=== PATIENT | female | born 1990 | race Caucasian/White ===

== ENCOUNTER → 2017-06-18 | Day surgery (SDC) | payer OTHER ==
[~2017-06-18] VITALS: Ht 162.6 cm; Wt 89.0 kg
[~2017-06-18] MED LIST: MULT-506 PO
[2017-06-18 07:35] VITALS: BP 131/79; PULSE 81; TEMP 36.9; O2SAT 100; Ht 162.6 cm; Wt 89.0 kg
== END | disposition home or self-care (01) ==
LOC: C.MTU 07:28
PROVIDERS: ATTEND Obstetrics & Gynecology
DX: O36.0990 Maternal care for other rhesus isoimmunization, unspecified trimester, not applicable or unspecified (principal); Z3A.00 Weeks of gestation of pregnancy not specified

== ENCOUNTER 2017-09-02 11:40 | Inpatient (IN) | payer OTHER ==
--- NOTE | 2017-08-29 14:33 | HISTORY & PHYSICAL EXAMINATION ---
DATE OF ADMISSION: 09/03/2017 CHIEF COMPLAINT: Term , macrosomia. Previous . HISTORY OF PRESENT ILLNESS: The patient is a 27-year-old 2, para 1, general health is good. Her was well dated with a first trimester ultrasound. She is due 09/04/2017. Her first resulted in a . She was in 32 hours of labor. She arrested at about 6 cm and she ended up with a 9 pound 5 ounce infant. Present head is floating. Cervix 1 cm posterior presently being scheduled for repeat section. PAST MEDICAL HISTORY: She has a 2-year-old son in good health. PAST SURGICAL HISTORY: She had in 2014. MEDICAL HISTORY: No history of rheumatic fever, heart disease, heart murmur, diabetes, tuberculosis. SOCIAL HISTORY: No smoking. No alcohol intake. She is a homemaker. FAMILY HISTORY: Mom is 50 in good health. Father 59, in good health, 6 sisters, 3 brothers, 1 sister is diabetic. REVIEW OF SYSTEMS: HEAD: No symptoms of frequent or severe headaches. EYES: No symptoms of blurred vision, double vision. EARS: No symptoms of frequent ear infection, difficulty hearing. NOSE: No symptoms of frequent nosebleeds, difficulty breathing through her nose. THROAT: No symptoms of frequent or severe sore throats, difficulty swallowing. RESPIRATORY SYSTEM: No history of asthma, chest pain, shortness of breath. PHYSICAL EXAMINATION: GENERAL: Well-developed, well-nourished 27-year-old white female, alert, oriented x3 and cooperative in no acute distress, appears stated age. EYES: Conjunctivae are pink, sclerae white, no evidence of jaundice. EARS: Had normal light reflex bilaterally. NOSE: Had normal mucosa. Septum is midline. There were no polyps. THROAT: No erythema or evidence of infection. Teeth are in good state of repair. HEAD: Was normocephalic, normal distribution of hair. NECK: Supple. Trachea midline. Thyroid is not enlarged. There is no adenopathy appreciated. Both carotids are of good intensity. CHEST: Clear to auscultation and percussion. No wheezes, rales or rhonchi appreciated. HEART: Regular rhythm. S1 and S2 are normal. BREAST EXAMINATION: Normal. ABDOMEN: Soft and nontender. Estimated weight of over 9 pounds. Well-healed Pfannenstiel scar. PELVIC EXAMINATION: Vertex presentation, floating. Cervix posterior, 1 to 2 cm dilated, soft. MUSCULOSKELETAL: Revealed no calf tenderness. IMPRESSIONS OF THIS CASE: Previous , previous history of macrosomia and repeat section.
--- NOTE | 2017-08-29 15:19 | PAT Medication Instructions ---
Service Date Aug 29, 2017. Current Home Medication List Multivit/Min/Iron/Fol Ac/Pren ( Vitamin), 1 TAB PO QAM Dawhu-7-Ikpn Ethyl Esters ([place]-3), 3 CAP PO QAM Vitamin B Complex (Vitamin B Complex), 1 TAB PO QAM Vitamin E (E 1000), 2 TAB PO QAM Medication Instructions For Your Scheduled Surgery - Hold the following medications starting tomorrow (08/30): Lkiks-2-Hych Ethyl Esters ([place]-3), 3 CAP PO QAM Vitamin E (E 1000), 2 TAB PO QAM - Hold the following medications the morning of surgery: Vitamin B Complex (Vitamin B Complex), 1 TAB PO QAM Multivit/Min/Iron/Fol Ac/Pren ( Vitamin), 1 TAB PO QAM : If you have any questions please call us at [phone] or [phone] or [phone]
[2017-08-29 16:13] LABS: BLOOD UREA NITROGEN 5 mg/dl (7-18); BUN/CREATININE RATIO 11.9 (10-20); CALCIUM 8.7 mg/dl (8.5-10.1); CARBON DIOXIDE 21 mmol/L (21-32); CHLORIDE 106 mmol/L (98-107); CREATININE 0.42 mg/dl (0.60-1.20); GLUCOSE 79 mg/dl (70-99); POTASSIUM 3.6 mmol/L (3.5-5.1); SODIUM 136 mmol/L (136-145)
[2017-08-29 16:17] LABS: COMPLETE YES; EOS % 1.1 %; HEMATOCRIT 33.2 % (37-47); IG% 0.7 %; LYMPH % 17.8 %; LYMPH ABS # 1.49 K/uL (1.2-3.4); MEAN CELL VOLUME 84.9 fL (80-100); MEAN CORPUSCULAR HEMOGLOBIN 28.4 pg (25-34); MEAN CORPUSCULAR HGB CONC 33.4 g/dl (32-36); MEAN PLATELET VOLUME 11.8 fL (7.4-10.4); MONO % 6.4 %; PLATELET COUNT 136 K/uL (130-400); RED BLOOD COUNT 3.91 M/uL (4.2-5.4); WHITE BLOOD COUNT 8.38 K/uL (4.8-10.8)
[2017-08-29 16:26] LABS: PARTIAL THROMBOPLASTIN RATIO 1.1; PROTHROMBIN TIME (PATIENT) 10.2 SECONDS (9.0-12.0)
[~2017-09-02] VITALS: Ht 162.6 cm; Wt 86.2 kg
[2017-09-02] VITALS (10 sets, daily range): BP systolic 108–129; BP diastolic 63–74; PULSE 83–94; TEMP 36.8–36.9; O2SAT 98–100; Ht 162.6 cm; Wt 86.2 kg
[~2017-09-02 11:40] MED LIST changes: -MULT-506 PO; +OMEG-112 PO; +PRENTAB26 PO; +VITA1CAP4 PO; +VITBC PO
[2017-09-02] MEDS ORDERED: LACTATED RINGER'S 1000ML 1,000 ML IV SCH ×2 (12:08→13:08)
[2017-09-02] MEDS ORDERED: CITRIC ACID/SODIUM CITRATE 15 ML UDC PO ONE (12:15)
[2017-09-02] MEDS ORDERED: CEFOXITIN IV 2,000 MG in DEXTROSE 5% 50ML 50 ML IV SCH (12:30)
[2017-09-02 12:42] LABS: BASO % 0.1 %; BASO ABS # 0.01 K/uL (0-0.2); COMPLETE YES; EOS % 0.6 %; HEMATOCRIT 30.2 % (37-47); IG% 0.8 %; LYMPH % 17.9 %; LYMPH ABS # 1.38 K/uL (1.2-3.4); MEAN CELL VOLUME 84.6 fL (80-100); MEAN CORPUSCULAR HEMOGLOBIN 28.9 pg (25-34); MEAN CORPUSCULAR HGB CONC 34.1 g/dl (32-36); MEAN PLATELET VOLUME 10.8 fL (7.4-10.4); MONO % 9.7 %; NEUT % 70.9 %; PLATELET COUNT 114 K/uL (130-400); RED BLOOD COUNT 3.57 M/uL (4.2-5.4); WHITE BLOOD COUNT 7.71 K/uL (4.8-10.8)
[2017-09-02] MEDS ORDERED: MoRPHine SULFATE PF 1 MG/ML 10 ML AMP/VIAL ONE (13:38)
[2017-09-02] MEDS ORDERED: EpHEDrine SULFATE 50MG/5ML SYR ONE (14:07)
[2017-09-02] MEDS ORDERED: OXYTOCIN INJ 10 UNITS/ML VIAL IM ONE (14:15)
[2017-09-02] MEDS ORDERED: SODIUM CHLORIDE 0.9% 1000ML 1,000 ML IV PRN (14:26)
[2017-09-02] MEDS ORDERED: LACTATED RINGER'S 1000ML 500 ML IV PRN (14:26)
[2017-09-02] MEDS ORDERED: NALOXONE HCL INJ 1 MG in SODIUM CHLORIDE 0.9% 1000ML 1,000 ML IV PRN (14:26)
[2017-09-02] MEDS ORDERED: NALOXONE HCL INJ 0.08 MG in SYRINGE 1.8 ML IV PRN (14:26)
[2017-09-02] MEDS ORDERED: KETOROLAC TROMETHAMINE 30 MG/ML VIAL IV. PRN (14:30)
[2017-09-02] MEDS ORDERED: NALOXONE HCL 0.4 MG/1 ML VIAL/CARP IV PRN (14:30)
[2017-09-02] MEDS ORDERED: ONDANSETRON INJ 2 MG/ML 2 ML VIAL IV PRN ×2 (14:30)
[2017-09-02] MEDS ORDERED: HYDROmorphone INJ 1 MG/ML SYR IV PRN (14:30)
[2017-09-02] MEDS ORDERED: MoRPHine SULFATE 2 MG/ML CARP IV PRN (14:30)
[2017-09-02] MEDS ORDERED: FENTANYL CITRATE INJ 50 MCG/1 ML 2 ML VIAL IV PRN (14:30)
[2017-09-02] MEDS ORDERED: MEPERIDINE HCL 25 MG/ML CARP IV PRN ×2 (14:30)
[2017-09-02] MEDS ORDERED: ATROPINE SULFATE 0.1 MG/ML 5ML SYR IV PRN (14:30)
[2017-09-02] MEDS ORDERED: NALBUPHINE HCL INJ 10 MG/ML AMP IV PRN (14:30)
[2017-09-02] MEDS ORDERED: MoRPHine SULFATE PF 1 MG/ML 10 ML AMP/VIAL EPI PRN (14:30)
[2017-09-02] MEDS ORDERED: EpHEDrine SULFATE INJ 50 MG/ML AMP IV PRN ×2 (14:30)
[2017-09-02] MEDS ORDERED: LABETALOL HCL IV 5 MG/ML 20ML IV PRN (14:30)
[2017-09-02] MEDS ORDERED: METOCLOPRAMIDE HCL INJ 20 MG in SODIUM CHLORIDE 0.9% 50ML 50 ML IV PRN (14:30)
[2017-09-02] MEDS ORDERED: NO NARCOTICS OR SEDATIVES SCH (14:30)
[2017-09-02] MEDS ORDERED: DiphenhydrAMINE HCL 50 MG/ML VIAL IV PRN ×2 (14:30)
[2017-09-02] MEDS ORDERED: OXYTOCIN INJ 10 UNITS/ML VIAL ONE (15:05)
[2017-09-02] MEDS ORDERED: MAGNESIUM HYDROXIDE SUSP 30 ML UDC PO PRN (15:15)
[2017-09-02] MEDS ORDERED: IBUPROFEN 600 MG TAB PO PRN (15:15)
[2017-09-02] MEDS ORDERED: BENZOCAINE 20% AER SPR 82.5 GM CAN EXT PRN (15:15)
[2017-09-02] MEDS ORDERED: LANOLIN OINT EXT PRN ×2 (15:15)
[2017-09-02] MEDS ORDERED: DIPHTHERIA/TETANUS/PERTUSSIS 0.5 ML SYR/VIAL IM. ONE (15:15)
[2017-09-02] MEDS ORDERED: HYDROCORTISONE ACETATE 25 MG SUPP PR PRN (15:15)
[2017-09-02] MEDS ORDERED: SENNA 8.6 MG TAB PO PRN (15:15)
[2017-09-02] MEDS ORDERED: SUPERCREAM 0.870 % 15GM JAR EXT PRN (15:15)
--- NOTE | 2017-09-02 15:20 | OPERATIVE REPORT ---
DATE OF OPERATION: 09/02/2017 PROCEDURE: Repeat section. INDICATIONS FOR SURGERY: Previous section and a history macrosomia. PREOPERATIVE DIAGNOSES: Intrauterine , 39+ weeks gestation, and ruptured membranes for over 24 hours. SURGEON: Dr. Hernandez. CENTRAL SUPPLY TECHNICIAN SUPERVISOR: assistant manager retail. ESTIMATED BLOOD LOSS: 600 mL. ANESTHESIA: Spinal. OPERATIVE FINDINGS AND PROCEDURE: The patient was brought to the OR table, correctly identified by armband and conversation. Spinal anesthesia was administered. After the patient had been identified by armband and conversation, Dominguez catheter was inserted aseptically in the bladder and connected to gravity drainage. Then, the compression stockings were applied. Lower uterus was prepped with alcohol based sterilizing solution. Following this, adequacy of the spinal was tested and found to be good. A Pfannenstiel incision was made by excising a previous Pfannenstiel incisional scar. Hemostasis was secured by electrocauterization. Fascia was incised transversely, from underlying muscle by blunt and sharp dissection. Recti muscles were in the midline, exposing the peritoneum, which was carefully raised and entered. Incision was made above the vesicouterine fold. Bladder was undermined bluntly and pushed out of the operative field. Lower uterine segment was scored and then entered bluntly with the scissors. Incision was then extended laterally with the 2 fingers. Amniotic fluid was seen coming through the incision. The wire straightening machine operator's hand was inserted in the uterine cavity. A Vectis retractor was applied to the head and with fundal pressure, the infant's head was delivered. It was suctioned by the robotic welder, Dr. Boykin, who was scrubbed and present at time of delivery. Then, the body was delivered with a moderate amount of difficulty due to the size. Cord was clamped and cut and the was attended to by the robotic welder, Dr. Boykin. Following this, cord blood was taken. The placenta was removed manually. Uterus, tubes, and ovaries were brought out through the incision. Uterine cavity was cleansed with a clean sponge. Ten units Pitocin was injected into the myometrium. The myometrium was approximated in 2 layers. The muscular layer was approximated with continuous chromic gut suture. The fascial layer was approximated over this with heavy Vicryl suture and about 3 [id number] sutures were used to bolster the approximation and this was done with heavy Vicryl. Following this, hemostasis was excellent. Peritoneal edges were restored with a 3-0 chromic. The pelvis was cleansed of all blood clots and debris. Uterus, tubes, and ovaries were inspected and found to be normal. They were reinserted into the abdominal cavity and careful anatomical approximation of the anterior abdominal wall was performed. Peritoneum was closed with a mattress suture of chromic catgut. Recti muscles were approximated with interrupted [id number] suture of chromic catgut. The fascia was closed with continuous interlocking suture of Vicryl on each side and tied in the midline. SubQ was approximated with continuous plain and the skin edges were approximated with staple clips. I attest to the content of the Intraoperative Record and any orders documented therein. Any exception s are noted below.
[2017-09-02] MEDS: OXYTOCIN INJ 20 UNITS in LACTATED RINGER'S 1000ML 1,000 ML IV SCH (16:43)
[2017-09-02] MEDS: SIMETHICONE 80 MG CHEW PO SCH ×2 (16:54→19:45)
--- NOTE | 2017-09-02 17:50 | Anesthesiology Progress Note ---
Anesthesia Post Op Note Date & Time Sep 02, 2017 at 17:49 Notes Neuraxial Anesthesia: was administered, sensory block is resolving
[2017-09-02] MEDS: DOCUSATE SODIUM 100 MG CAP PO SCH (19:45)
[2017-09-03] VITALS (12 sets, daily range): BP systolic 100–110; BP diastolic 57–69; PULSE 73–80; TEMP 36.5–37; O2SAT 97–99
[2017-09-03] MEDS: OXYTOCIN INJ 20 UNITS in LACTATED RINGER'S 1000ML 1,000 ML IV SCH (01:56)
[2017-09-03] MEDS ORDERED: LACTATED RINGER'S 1000ML 1,000 ML IV SCH (06:00)
[2017-09-03] MEDS ORDERED: CITRIC ACID/SODIUM CITRATE 15 ML UDC PO SCH (06:00)
[2017-09-03 06:36] LABS: COMPLETE YES; EOS % 0.3 %; HEMATOCRIT 27.7 % (37-47); IG% 0.6 %; LYMPH % 10.8 %; LYMPH ABS # 1.01 K/uL (1.2-3.4); MEAN CELL VOLUME 85.2 fL (80-100); MEAN CORPUSCULAR HEMOGLOBIN 28.6 pg (25-34); MEAN CORPUSCULAR HGB CONC 33.6 g/dl (32-36); MEAN PLATELET VOLUME 11.5 fL (7.4-10.4); MONO % 8.7 %; NEUT % 79.6 %; PLATELET COUNT 119 K/uL (130-400); RED BLOOD COUNT 3.25 M/uL (4.2-5.4); WHITE BLOOD COUNT 9.33 K/uL (4.8-10.8)
[2017-09-03] MEDS ORDERED: DC INTRASPINAL MORPHINE SCH (07:55)
[2017-09-03] MEDS ORDERED: OXYCODONE/ACETAMINOPHEN 5-325 TAB PO PRN ×2 (07:56)
[2017-09-03] MEDS ORDERED: DiphenhydrAMINE HCL 50 MG/ML VIAL IV PRN (07:56)
[2017-09-03] MEDS ORDERED: ONDANSETRON INJ 2 MG/ML 2 ML VIAL IV PRN (07:56)
[2017-09-03] MEDS ORDERED: KETOROLAC TROMETHAMINE 30 MG/ML VIAL IV. PRN (07:56)
[2017-09-03] MEDS ORDERED: ZOLPIDEM TARTRATE 5 MG TAB PO PRN (07:56)
[2017-09-03] MEDS ORDERED: MEPERIDINE HCL 50 MG/ML CARP IV PRN ×2 (07:56)
[2017-09-03] MEDS ORDERED: FERROUS SULFATE 325 MG TAB PO SCH (08:00)
[2017-09-03] MEDS ORDERED: PRENATAL VITAMIN TAB PO SCH (08:00)
[2017-09-03] MEDS: DOCUSATE SODIUM 100 MG CAP PO SCH (08:59)
[2017-09-03] MEDS: SIMETHICONE 80 MG CHEW PO SCH ×2 (08:59→17:20)
--- NOTE | 2017-09-03 09:19 | Progress Note ---
Subjective Sep 03, 2017. Subjective conversation w/ patient Ambulation: ambulating normally Voiding: no voiding problems Passing Gas: Yes Diet Tolerance: Regular Diet Lochia: Small Feeding Type: Breast Feeding Review of Systems Constitutional: + fever Objective Vital Signs Date Time Temp Pulse Resp B/P (MAP) Pulse Ox O2 Delivery O2 Flow Rate FiO2 09/03/17 05:30 18 99 09/03/17 03:30 36.9 80 18 110/69 (83) 99 Room Air 09/03/17 03:30 18 99 09/03/17 02:30 18 99 09/03/17 01:30 18 99 09/03/17 00:30 20 99 09/02/17 23:30 98 Room Air 09/02/17 23:30 36.9 86 18 108/63 (78) 98 Room Air 09/02/17 23:30 18 98 09/02/17 22:30 18 98 09/02/17 21:30 18 99 09/02/17 20:30 20 98 09/02/17 20:00 36.8 83 16 110/66 (81) 100 Room Air 09/02/17 19:30 16 100 09/02/17 18:30 18 100 09/02/17 18:05 36.8 94 18 123/69 (87) 100 09/02/17 17:30 18 98 09/02/17 17:25 98 Room Air 09/02/17 17:25 36.8 88 18 129/74 (92) 98 Room Air Physical Exam General Appearance: WELL-APPEARING Respiratory/Chest: lungs clear Abdomen: normal bowel sounds, non tender Fundus: Firm, Non-Tender Incision Description: Clean, Dry & Intact Extremities: no pedal edema, no calf tenderness Laboratory Results Last 24 Hours Test 09/02/17 12:33 09/03/17 05:58 White Blood Count 7.71 K/uL 9.33 K/uL Red Blood Count 3.57 M/uL 3.25 M/uL Hemoglobin 10.3 g/dL 9.3 g/dL Hematocrit 30.2 % 27.7 % Mean Corpuscular Volume 84.6 fL 85.2 fL Mean Corpuscular Hemoglobin 28.9 pg 28.6 pg Mean Corpuscular Hemoglobin Concent 34.1 g/dl 33.6 g/dl Platelet Count 114 K/uL 119 K/uL Mean Platelet Volume 10.8 fL 11.5 fL Neutrophils (%) (Auto) 70.9 % 79.6 % Lymphocytes (%) (Auto) 17.9 % 10.8 % Monocytes (%) (Auto) 9.7 % 8.7 % Eosinophils (%) (Auto) 0.6 % 0.3 % Basophils (%) (Auto) 0.1 % 0.0 % Neutrophils # (Auto) 5.46 K/uL 7.42 K/uL Lymphocytes # (Auto) 1.38 K/uL 1.01 K/uL Monocytes # (Auto) 0.75 K/uL 0.81 K/uL Eosinophils # (Auto) 0.05 K/uL 0.03 K/uL Basophils # (Auto) 0.01 K/uL 0.00 K/uL RDW Standard Deviation 41.9 fL 43.6 fL RDW Coefficient of Variation 13.7 % 14.0 % Immature Granulocyte % (Auto) 0.8 % 0.6 % Immature Granulocyte # (Auto) 0.06 K/uL 0.06 K/uL Assessment and Plan Post-Op Day#: 1 Continue Routine Care: patient requested discharge
--- NOTE | 2017-09-03 09:21 | Discharge Instructions ---
Discharge Instructions Date of Service Sep 03, 2017. Admission Reason for Admission: R/O Rupture Of Membranes Discharge Discharge Diagnosis / Problem: ruptured membranes over 24 hours Discharge Goals Goal(s): Routine recovery after Activity Recommendations Activity Limitations: as noted below ACTIVITY RECOMMENDATIONS: * Gradual return to full activity over the next 2-3 weeks. * No lifting - nothing heavier than baby over the next 2-3 weeks. * Do not engage in vigorous exercise, sexual activity or sports for 6 weeks. * Do not drive or operate any motorized equipment for 14 days. * You may shower/bathe daily. DIET: Resume Previous Diet If Breast-feeding: * Increase caloric intake by 500 calories, eat 3 well balanced meals, 2 high protein snacks a day and drink 6-8 8oz. glasses of fluid per day. BREAST CARE: If you are not breast feeding: * Wear a supportive bra 24 hours a day for one to two weeks. * Avoid stimulating your breasts and nipples as much as possible during the first few weeks after delivery. * When taking a shower, have the warm water hit your back, not breasts. * When your breasts feel full, apply ice packs. Usually three to four times a day helps ease the discomfort. * Take a mild pain medication (Tylenol / Motrin) when you are uncomfortable. If breast feeding: * Use breast milk to lubricate nipples. Lansinoh cream may be used for sore nipples. You do not need to remove cream prior to breast feeding. If using a different brand of cream, check the label for directions regarding removal of cream prior to nursing. * Wear a supportive bra. * If having problems with breasts or breast feeding, call a road consultant or your health care provider. VITAMINS: * One tablet daily. Continue taking while or until you have your check up in 6 weeks. SPECIAL CARE INSTRUCTIONS: * Vaginal rest (no tampons, douching, intercourse) until after doctor's visit. * control as discussed with doctor. * Verbalizes understanding of car seat law as reviewed with patient by nursing. * Car Seat hand-out given and reviewed with patient by nursing. * Shaken baby information reviewed with patient by nursing. Call you doctor if: * Heavy bleeding (saturating a pad an hour) or passing clots the size of your fist. Bleeding has a foul smelling odor. * A fever greater than 100.4 degrees F (38 degrees C) on two occasions four hours apart and/or chills. * Unusual pain in the pelvic or vaginal areas. Pain should improve each day . * Call the doctor for any increased redness, drainage or swelling around the incision and any pain unrelieved by prescribed pain medication. * Signs and symptoms of phlebitis(possible blood clots forming in the veins): leg pain, warm, red or swollen area on leg. * "Baby Blues" lasting longer than two weeks. If you have any questions or concerns, call your health care practitioner at [phone]. FOLLOW-UP VISIT: Follow-up visit for examination in 6 weeks. Incision check (staple removal) in 1 week. Please call office at [phone] if not already scheduled. . Instructions / Follow-Up Instructions / Follow-Up ACTIVITY RECOMMENDATIONS: * Gradual return to full activity over the next 2-3 weeks. * No lifting - nothing heavier than baby over the next 2-3 weeks. * Do not engage in vigorous exercise, sexual activity or sports for 6 weeks. * Do not drive or operate any motorized equipment for 14 days. * You may shower/bathe daily. DIET: Resume Previous Diet If Breast-feeding: * Increase caloric intake by 500 calories, eat 3 well balanced meals, 2 high protein snacks a day and drink 6-8 8oz. glasses of fluid per day. BREAST CARE: If you are not breast feeding: * Wear a supportive bra 24 hours a day for one to two weeks. * Avoid stimulating your breasts and nipples as much as possible during the first few weeks after delivery. * When taking a shower, have the warm water hit your back, not breasts. * When your breasts feel full, apply ice packs. Usually three to four times a day helps ease the discomfort. * Take a mild pain medication (Tylenol / Motrin) when you are uncomfortable. If breast feeding: * Use breast milk to lubricate nipples. Lansinoh cream may be used for sore nipples. You do not need to remove cream prior to breast feeding. If using a different brand of cream, check the label for directions regarding removal of cream prior to nursing. * Wear a supportive bra. * If having problems with breasts or breast feeding, call a road consultant or your health care provider. VITAMINS: * One tablet daily. Continue taking while or until you have your check up in 6 weeks. SPECIAL CARE INSTRUCTIONS: * Vaginal rest (no tampons, douching, intercourse) until after doctor's visit. * control as discussed with doctor. * Verbalizes understanding of car seat law as reviewed with patient by nursing. * Car Seat hand-out given and reviewed with patient by nursing. * Shaken baby information reviewed with patient by nursing. Call you doctor if: * Heavy bleeding (saturating a pad an hour) or passing clots the size of your fist. Bleeding has a foul smelling odor. * A fever greater than 100.4 degrees F (38 degrees C) on two occasions four hours apart and/or chills. * Unusual pain in the pelvic or vaginal areas. Pain should improve each day . * Call the doctor for any increased redness, drainage or swelling around the incision and any pain unrelieved by prescribed pain medication. * Signs and symptoms of phlebitis(possible blood clots forming in the veins): leg pain, warm, red or swollen area on leg. * "Baby Blues" lasting longer than two weeks. If you have any questions or concerns, call your health care practitioner at [phone]. FOLLOW-UP VISIT: Follow-up visit for examination in 6 weeks. Incision check (staple removal) in 1 week. Please call office at [phone] if not already scheduled. Current Hospital Diet Patient's current hospital diet: Regular OB Diet Discharge Diet Recommended Diet: Regular Diet Procedures Procedures Performed: [facility] delivery for live female at 1412 Pending Studies Studies pending at discharge: no Medical Emergencies . Who to Call and When: Medical Emergencies: If at any time you feel your situation is an emergency, please call 911 immediately. . Non-Emergent Contact Non-Emergency issues call your: Inner Diameter Grinder Tool Call Non-Emergent contact if: temperature is above 100.5 . . "Provider Documentation" section prepared by Alcides Hernandez. . VTE Core Measure Inpt VTE Proph given/why not?: Treatment not indicated
--- NOTE | 2017-09-03 09:36 | DISCHARGE SUMMARY ---
This is a 27-year-old female 2, para 2 who has been followed in our office for care and delivery, had a prior for macrosomia and cephalopelvic disproportion. The patient called on the day of admission and stated that her membranes had been ruptured since 3:00 a.m. on the previous day. She was told to come into the office for evaluation at which time she had cheng rupture of membranes confirmed by Nitrazine paper and at that time the head was floating, was posterior, and was about 1-2 cm. She was sent up to maternity for repeat section. She received 2 grams of Mefoxin prophylactic antibiotics, underwent repeat low segment section. Blood loss was moderate at about 500-600 mL. Postoperatively, she did well. Her preoperative hemoglobin was about 10.6, postoperatively was about 9.3. On the first postoperative day, she was ambulating well, eating well. She had good bowel sounds. Pain was well controlled with Percocet and Motrin and they requested discharge later in the day. She was given the usual discharge instructions and told to call the office if she had a temperature over 100 or any heavy bleeding and was given the usual prescriptions of Percocet and Motrin and told to continue her vitamins.
[2017-09-03] MEDS ORDERED: BISACODYL 5 MG TABEC PO ONE (22:00)
[2017-09-04] MEDS ORDERED: BISACODYL 10 MG SUPP PR PRN (15:15)
== END 2017-09-03 18:25 | disposition home or self-care (01) | DRG 766 ==
LOC: C.LD 11:40 → C.OPB 11:40 → C.LD 12:10 → C.OPB 12:44 → C.OBG 19:10 → EDSTATUS 09-03 07:30
PROVIDERS: ADMIT Obstetrics & Gynecology; ATTEND Obstetrics & Gynecology
PROC: 10D00Z1 Extraction of Products of Conception, Low, Open Approach (ICD-10-PCS; principal; 2017-09-02 12:46)
DX: O34.211 Maternal care for low transverse scar from previous cesarean delivery (principal); O42.12 Full-term premature rupture of membranes, onset of labor more than 24 hours following rupture; O09.893 Supervision of other high risk pregnancies, third trimester; Z3A.39 39 weeks gestation of pregnancy; Z37.0 Single live birth

== ENCOUNTER 2020-01-15 06:09 | Inpatient (IN) ==
[2020-01-15] MEDS ORDERED: PIPERACILL/TAZOBAC CONSULT ACTIVE PRN (06:50)
[2020-01-15] MEDS ORDERED: DEXAMETHASONE SOD INJ 4 MG/ML VIAL IV STA (06:50)
[2020-01-15] MEDS ORDERED: SODIUM CHLORIDE 0.9% 1000ML 1,000 ML IV ONE (06:50)
[2020-01-15] MEDS ORDERED: PIPERACILLIN/TAZOBACTAM 4.5 GM/120 ML BAG IV ONE (06:50)
[2020-01-15] MEDS ORDERED: ACETAMINOPHEN 1,000 MG/100 ML VIAL IV STA (06:50)
[2020-01-15 07:16] LABS: Basophils # (auto) 0.01 K/uL (0-0.2); Basophils % (auto) 0.1 %; Eosinophils # (auto) 0.07 K/uL (0-0.5); Eosinophils % (auto) 0.9 %; Hematocrit (blood only) 36.5 % (37-47); Hemoglobin 12.4 g/dL (12.0-16.0); Immature Granulocytes # (auto) 0.01 K/uL (0.00-0.02); Immature Granulocytes % (auto) 0.1 %; Lymphocytes % (auto) 11.8 %; Mean Corpuscular Hemoglobin 28.1 pg (25-34); Mean Corpuscular Volume 82.8 fL (80-100); Mean Platelet Volume 11.3 fL (7.4-10.4); Monocytes # (auto) 0.66 K/uL (0.11-0.59); Monocytes % (auto) 8.6 %; Neutrophils # (auto) 5.99 K/uL (1.4-6.5); Neutrophils % (auto) 78.5 %; Platelet Count 188 K/uL (130-400); RDW Coefficient of Variation 14.4 % (11.5-14.5); RDW Standard Deviation 43.8 fL (36.4-46.3); Red Blood Count 4.41 M/uL (4.2-5.4); White Blood Count 7.64 K/uL (4.8-10.8)
[2020-01-15 07:32] LABS: INR 1.1 (0.9-1.1); Prothrombin Time 11.3 Seconds (9.0-12.0)
[2020-01-15 07:33] LABS: Albumin Level 3.8 gm/dl (3.4-5.0); BUN Creatinine Ratio 12.7 (10-20); Calcium 8.6 mg/dl (8.5-10.1); Creatinine Clr Calc Pharmacy 120.3 ml/min; Est GFR (African American) 131.5; Est GFR (Non-African American) 113.5; Potassium 3.9 mmol/L (3.5-5.1)
[2020-01-15 07:43] LABS: Bilirubin,Total 0.6 mg/dl (0.2-1); Globulin 3.7 gm/dl (2.5-4.0); Pregnancy Test, Serum Negative (Negative); Thyroid Stimulating Hormone 1.94 uIu/ml (0.300-4.500); Total Protein 7.5 gm/dl (6.4-8.2)
[2020-01-15] MEDS ORDERED: IOVERSOL 100ml IV PRN (07:57)
--- NOTE | 2020-01-15 08:18 | CT Scan Report ---
CT soft tissue neck w con CLINICAL HISTORY: 29 years-old Female presenting with swollen neck, dysphagia, recent dental procedur e. TECHNIQUE: Multidetector CT of the neck was performed after the administration of intravenous contras t. IV contrast: 94 mL of Optiray 320. One or more dose lowering techniques were used consistent with the principles of ALARA (as low as reasonably achievable), including automatic exposure control, mA o r kV adjustment to individual patient size, and/or use of iterative reconstruction. COMPARISON: None. CT DOSE (mGy.cm): The estimated cumulative dose is 564.37 mGy.cm. FINDINGS: Occupational Therapy Teacher topogram: Unremarkable. Polypoid mucosal thickening in the right maxillary sinus and to a minimal extent in the left maxillar y sinus. Remainder of the paranasal sinuses and mastoid air cells clear. Extensive debris in the exte rnal auditory canals, possibly dense cerumen. This appears to abut the bilateral tympanic membranes. Orbits normal. Parotid, submandibular, and thyroid glands normal. Numerous small cervical lymph nodes are likely reactive. Soft tissue swelling asymmetrically in the right premandibular region with subcutaneous fat infiltrat ion. There is also thickening of the subjacent platysma. There is no periapical lucency identified. N o extensive endodontic disease. Amalgam mildly degrades evaluation of the oral cavity. No significant buccal mucosal hyperemia. No convincing evidence of an odontogenic abscess. Foci of gas noted in the region of the right ankle the mandible. This may represent intravascular gas related to injection technique. This does not appear to be contained within a fluid collection. No s oft tissue abscess. However, there is vague edema and fullness at the base of the tongue probably on the right. Associated mild infiltration of the right parapharyngeal fat. The parapharyngeal fat plane is not sig nificantly displaced. The pharynx appears mildly effaced. Suspected thickening of the right aryepiglo ttic fold versus secretions. The epiglottis is not thickened. The larynx is patent. Lung apices clear . No prevertebral fluid. Mild infiltration in the anterior neck suspected extending along the anterior aspect of the thyroid gland. This is not appear to extend into the superior mediastinum. Cervical spine within normal limits. IMPRESSION: 1. Extensive infiltration and swelling consistent with edema involving the right perimandibular face as well as the right parapharyngeal region. There is no focal collection to suggest abscess. There i s mild mass effect on the pharynx and questionable edema of the right aryepiglottic fold versus secre tions. There is also suspected tracking of inflammatory changes along the anterior neck, which do not convincingly extend into the superior mediastinum. 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 2. No CT evidence of periapical abscess or extensive endodontic disease. No odontogenic abscess. The report will be called/faxed according to standard departmental protocol. ACT 112: Negative or not required by law. Results electronically sent 01/15/2020 8:16 AM to: Maribell Adams DO Electronically signed by: Prem Snyder M.D. 01/15/2020 8:16 AM
--- NOTE | 2020-01-15 09:14 | History & Physical Report ---
Date of Service January 15, 2020 Assessment & Plan (1) Orlando's angina: (2) Dental infection: - Admit to PCU for tenuous state of the patient and concerns for possible airway involvement d/t significant edema - CT face reviewed: *Extensive infiltration and swelling consistent with edema involving the right perimandibular face as well as the right parapharyngeal region. There is no focal collection to suggest abscess. There is mild mass effect on the pharynx and questionable edema of the right aryepiglottic fold versus secretions. There is also suspected tracking of inflammatory changes along the anterior neck, which do not convincingly extend into the superior mediastinum. Findings co ncerning for Orlando's angina. *No CT evidence of periapical abscess or extensive endodontic disease. No odontogenic abscess. - Already has received Dexamethasone 10 mg in the ER, - The patient is afebrile, WBC = 7 K, Hold home and amoxicillin, continue with IV abx - Consult oral maxillofacial surgery- Dr. Valencia, discussed via phone, plans to see the patient later this afternoon-no plans for tooth extraction today, continue with IV antibiotics including IV Zosyn and will add clindamycin. Note immunocompromised as this is an Jamie patient without history of vaccinations. - Allow full liquid diet - Pain control with tylenol as pt notes pain is tolerable currently, consider addition of IV toradol if needed - Discussion held regarding oral hygeine and frequent brushing, mouthwash - will need to address fluoride prior to discharge, available in products like Listerine total care. Dental procedures to be done by dentist or qualified professional only in the future. (3) DVT prophylaxis: - teds, ambulatory CODE: FULL Dispo: From home, discharge possible within 2 days History of Present Illness Primary Care Provider: NO PCP This is an Jamie 29 yo F with PMHx of multiple dental caries, previous extraction of upper wisdome teeth, who presents after attempting to have the left inferior wisdom tooth extracted, performed by a person who is not a dentist or a physician, last Saturday02/08/2020. Patient notes that her tooth is now cracked, and that pain began on Saturday afternoon and worsened throughout the next 2 days. She reports that she called on Saturday to that person who preformed the attempted extraction, and was given a prescription for amoxicillin 500 mg TID, and has taken 2 doses so far, the last at 0500 this morning. She reports having worsening swelling involving the right jaw, difficulty with opening her mouth, tongue swelling, and difficulty swallowing. She denies any foul or blood-like taste, she denies any respiratory complaints, no difficulty with breathing, deep breaths, cough, etc. she reports that the right bottom wisdom teeth has also had multiple cavities and she would like to have it extracted if they are extracting the left. She brushes her teeth routinely twice daily, and has been using an antiseptic mouthwash in the past few days. Allergies Allergy/AdvReac Type Severity Reaction Status Date / Time latex Allergy Unknown irritation Verified 09/02/17 13:57 on contact Home Medications Home Medications Medication Instructions Recorded Confirmed Type multivitamin 1 tab PO DAILY 01/15/20 01/15/20 History Past Med/Surg History Medical History (Updated 01/15/20 @ 19:39 by Ayan Cooney MD) No significant past medical history Obese body habitus Surgical History Previous section Social History Preferred Language: Korean Communication Ability: Effective Claims Technician Required: No Beliefs That Will Affect Care: None Current Living Situation: Spouse and Family Other Information That Helps Us Care for You: No Feels Safe at Home: Yes Safety Concerns: Feels Safe At This Time Smoking Status: Never smoker Do You Dip or Chew Tobacco: No ; Hx Alcohol Use: No Hx Substance Use: No Review of Systems Review of Systems: Constitutional: No fever, sweats or chills Eyes: No diplopia, no worsening or blurred vision ENT: normal hearing, + R jaw pain and swelling as per HPI, + trouble swallowing as per HPI, + poor oral intake x 1 day Respiratory: No cough, sputum, dyspnea at rest or on exertion Cardiovascular: No chest pain, tightness or palpitations Abdomen: No pain, nausea, vomiting, diarrhea or constipation Musculoskeletal: No joint pain, calf pain, swelling Neurologic: No weakness, numbness/tingling, or balance problems Psychiatric: No anxiety or depression Skin: No rash or itch Physical Exam Physical Exam: General: awake, alert, no apparent distress, + obese Head: Normocephalic, atraumatic ENT: PERRL, EOMI, no pharyngeal exudate, + uvula visualized without edema, + edema of the tongue posteriorly, + multiple dental caries throughout, + R inferior wisdom tooth cracked, no drainage from around area, no bleeding, mucous membranes moist, + edema of the R mandibular region extending submentally, + tender to palpation, + difficulty with swallowing due to pain. Chest: Clear to auscultation, on room air, no adventitious breath sounds Cardiac: Regular rate and rhythm, no murmur, no JVD, normal peripheral pulses, good capillary refill Abdominal: NABS x 4 quadrants, soft, nondistended, nontender to palpation, no rebound, guarding or tenderness Extremities: Normal inspection, no peripheral edema or erythema, calfs nontender to palpation Psych: Normal mood and affect Neuro: AAO x 3, strength intact bilaterally and rated 5/5, no motor deficits, speech is clear, no peripheral sensory deficits Results & Data Vital Signs (Past 12 Hours) Vital Signs Temp Pulse Resp BP Pulse Ox 01/15/20 07:30 68 17 116/70 99 01/15/20 07:07 79 19 124/74 98 01/15/20 06:11 36.6 C 93 H 16 130/[address] soft tissue neck w con CLINICAL HISTORY: 29 years-old Female presenting with swollen neck, dysphagia, recent dental procedure. TECHNIQUE: Multidetector CT of the neck was performed after the administration of intravenous contrast. IV contrast: 94 mL of Optiray 320. One or more dose lowering techniques were used consistent with the principles of ALARA (as low as reasonably achievable), including automatic exposure control, mA or kV adjustment to individual patient size, and/or use of iterative reconstruction. COMPARISON: None. CT DOSE (mGy.cm): The estimated cumulative dose is 564.37 mGy.cm. FINDINGS: Music Mixer topogram: Unremarkable. Polypoid mucosal thickening in the right maxillary sinus and to a minimal extent in the left maxillary sinus. Remainder of the paranasal sinuses and mastoid air cells clear. Extensive debris in the external auditory canals, possibly dense cerumen. This appears to abut the bilateral tympanic membranes. Orbits normal. Parotid, submandibular, and thyroid glands normal. Numerous small cervical lymph nodes are likely reactive. Soft tissue swelling asymmetrically in the right premandibular region with subcutaneous fat infiltration. There is also thickening of the subjacent platysma. There is no periapical lucency identified. No extensive endodontic disease. Amalgam mildly degrades evaluation of the oral cavity. No significant buccal mucosal hyperemia. No convincing evidence of an odontogenic abscess. Foci of gas noted in the region of the right ankle the mandible. This may represent intravascular gas related to injection technique. This does not appear to be contained within a fluid collection. No soft tissue abscess. However, there is vague edema and fullness at the base of the tongue probably on the right. Associated mild infiltration of the right parapharyngeal fat. The parapharyngeal fat plane is not significantly displaced. The pharynx appears mildly effaced. Suspected thickening of the right aryepiglottic fold versus secretions. The epiglottis is not thickened. The larynx is patent. Lung apices clear. No prevertebral fluid. Mild infiltration in the anterior neck suspected extending along the anterior aspect of the thyroid gland. This is not appear to extend into the superior mediastinum. Cervical spine within normal limits. IMPRESSION: 1. Extensive infiltration and swelling consistent with edema involving the right perimandibular face as well as the right parapharyngeal region. There is no focal collection to suggest abscess. There is mild mass effect on the pharynx and questionable edema of the right aryepiglottic fold versus secretions. There is also suspected tracking of inflammatory changes along the anterior neck, which do not convincingly extend into the superior mediastinum. 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 2. No CT evidence of periapical abscess or extensive endodontic disease. No odontogenic abscess. The report will be called/faxed according to standard departmental protocol. ACT 112: Negative or not required by law. Results electronically sent 01/15/2020 8:16 AM to: Maribell Adams DO Electronically signed by: Prem Snyder M.D. 01/15/2020 8:16 AM Code Status & VTE Plan Code Status Full code - discussed with the pt and her at bedside. Supervising Physician Co-Signing Physician Notes Patient seen and examined with Jennifer ZAFAR. I agree with her exam findings, review of systems, assessment and plan. I personally reviewed the lab work and imaging as well. patient seen in her room after admission she is feeling a lot better on Zosyn and Clindamycin, says she has less pain able to tolerate liquid diet reviewed labs, WBC normal, Cr normal, electrolytes stable no fever and vitals stable - Orlando's angina: diagnosed on CT neck/soft tissues, tracking of inflammation/infection far less pain, no fever, WBC normal continue Zosyn and Clindamycin triggered by unsuccessful tooth extraction will consult Dr. Valencia for recommendations PG Care Time/CCT Total # of Minutes Spent Total Time Spent with Patient: Total time spent is greater than 50% in coordination of care (as documented) at patient's floor/unit and/or counseling patient: Coding Level of Care Code 39333 Initial Inpt Care Lvl 3 Diagnoses Orlando's angina K12.2 Dental infection K04.7 DVT prophylaxis Z29.9
[2020-01-15] MEDS ORDERED: KETOROLAC TROMETHAMINE 15 MG/ML VIAL IV ONE (09:51)
[2020-01-15] MEDS ORDERED: ONDANSETRON INJ 2 MG/ML 2 ML VIAL IV PRN (10:36)
[2020-01-15] MEDS ORDERED: CLINDAMYCIN 900 MG in DEXTROSE 5% 50 ML IV ONE (11:00)
[2020-01-15] MEDS: PIPERACILLIN/TAZOBACTAM 3.375 GM in DEXTROSE 5% 100 ML IV SCH ×2 (11:30→20:52)
--- NOTE | 2020-01-15 19:01 | Surgery Consultation ---
Date of Consultation January 15, 2020 History of Present Illness Attending Physician: Maxillo Facial/Oral Surgery Exam Present Complaint:acute right side swelling, went to :[facility] dentist: due to pain and what sound like P-Cor lower right side was told she needed the partial impacted # 32 removed. An attempt was made to remove # 32 but it fractured and despite trying to remove the tooth he was not able. Over the next few days she experienced intense pain ans swelling. She called the "dentist" and was Rx amoxicillin (?). This did not help and her pain and swelling got worse. She came to [facility] ED this morning and was admitted with acute facial infection and possible Orlando`s angina. I was consulted for I&D and removal of the infected # 32 tooth roots. At 6 PM--Lily has improved with IV antibiotics and fluid. The area is ready to drain and remove the fractured impacted roots of # 32. I feel that once the incision to remove the roots that I will also drain the sub--lingual, periosteal and mandibular spaces. The soft tissue around # 17 is also inflamed and to avoid another infection I will remove this impacted tooth (partial ) as well. Plan GA and surgery tomorrow AM at 7;30 Consent reviewed and signed. Risks reviewed OK for procedure will keep NPO 12 midnight. A detailed oral exam was completed. Soft tissue---soft swelling right neck, cheek and submandibular area from infection, extension to midline --as per Lily improved as of this AM. Cancer exam--No other lesions noted that require follow up or Bx. Oral Care---Overall oral care is good Occlusion---Class III TMJ exam--limited ROM due to muscle trismus and infection Periodontal exam---overall good The soft tissue of the tongue, palate (hard/soft) all WNL--Right submand space and lateral to # 32 swollen and irritated from recent dental procedure. CT scan reviewed --agree with finding Neck is supple, FROM, Able to extend and flex neck w/o difficulty, swelling as noted above from resolving Orlando's angina Plan: Take to OR tomorrow AM 7:30 am General anesthesia I&D of right facial swelling Removal of tooth # 32 and 17. Continue admission with ? d/c Saturday AM Oral antibiotics and pain management. Follow Dr Valencia until complete resolution I reviewed the treatment plan and consent with the patient . Understanding was expressed. Time was given for questions regarding the surgery, risks and post op care. The procedure will be set up tomorrow AM. WISDOM EXAM AND INFECTION; the wisdom teeth are in an abnormal position and causing symptoms of pain, swelling and pressure. This has been going on for a while and patient was referred for evaluation and treatment planning. Findings: The wisdom teeth are impacted and in an abnormal position, removal is indicated and medically necessary to drain the current infection. Risks discussed: Pain,swelling,infection, dry socket, delayed healing, nerve injury to face,lips,tongue,chin area which could be permanent (rare). TMJ, jaw stiffness, change in bite (rare), ear pain (referred). Home care reviewed--tooth brushing, rinsing, follow up care with Dr Valencia, [id number] Discussed activity level preparation for the GA and surgery at Hospital . Allergies Allergy/AdvReac Type Severity Reaction Status Date / Time latex Allergy Unknown irritation Verified 09/02/17 13:57 on contact Home Medications Home Medications Medication Instructions Recorded Confirmed Type multivitamin 1 tab PO DAILY 01/15/20 01/15/20 History Patient History Medical History No significant past medical history Surgical History Previous section Social History Preferred Language: Ethiopian Communication Ability: Effective Senior Product Marketing Manager Required: No Beliefs That Will Affect Care: None Current Living Situation: Spouse and Family Other Information That Helps Us Care for You: No Feels Safe at Home: Yes Safety Concerns: Feels Safe At This Time Smoking Status: Never smoker Do You Dip or Chew Tobacco: No ; Hx Alcohol Use: No Hx Substance Use: No Results & Data Vital Signs (Past 12 Hours) Vital Signs Temp Pulse Pulse Resp BP BP Pulse Ox 01/15/20 15:18 36.7 C 72 17 108/61 97 01/15/20 10:39 83 01/15/20 10:38 36.5 C 78 18 120/78 97 01/15/20 10:00 79 18 107/67 93 01/15/20 09:30 84 21 124/89 98 01/15/20 09:00 74 16 122/71 95 01/15/20 08:30 70 19 115/71 100 01/15/20 07:30 68 17 116/70 99 01/15/20 07:07 79 19 124/74 98 PG Care Time/CCT Total # of Minutes Spent Total Time Spent with Patient: Total time spent is greater than 50% in coordination of care (as documented) at patient's floor/unit and/or counseling patient: Coding Level of Care Code 42740 Inpt Consult Level 4
--- NOTE | 2020-01-15 19:40 | Anesthesiology Consultation ---
Date of Service January 15, 2020 Assessment & Plan Chart Review Chart Review: Acceptable Risk for Surgery and Patient NOT seen in Pre Admission Testing Consults Requested none ASA ASA4 Proposed Anesthesia Anesthesia Type: General History Surgery Operation Date: 01/16/20 07:30 Proposed Procedures p Complete Bony Impaction - Tez Valencia, ELISHA Height/Weight Height: 5 ft 3 in Weight: 85.1 kg Allergies Allergy/AdvReac Type Severity Reaction Status Date / Time latex Allergy Unknown irritation Verified 09/02/17 13:57 on contact Medications Home Medications Medication Instructions Recorded Confirmed Last Taken multivitamin 1 tab PO DAILY 01/15/20 01/15/20 Unknown Active Medications Generic Name Dose Route Start Last Admin Trade Name Freq PRN Reason Stop Dose Admin Piperacillin Sod/Tazobactam 115 mls @ 28.75 mls/hr 01/15/20 12:00 01/15/20 15:30 Sod 3.375 gm/ Dextrose IV 01/25/20 11:59 Infused Q8H OLGA Infusion Protocol Ioversol 94 ml 01/15/20 07:57 01/15/20 07:57 Optiray 320 100ml IV 01/19/20 07:56 94 ml ONCE PRN Administration Interaction Checking Past Medical History Medical History (Updated 01/15/20 @ 19:39 by Ayan Cooney MD) No significant past medical history Obese body habitus Exercise / Class Metabolic Activity II 4-5 Yardwork/Stairs/Walk up hill Past Surgical History Surgical History Previous section Past Anesthesia History No Hx of Anesthesia Complications and No Family Hx of Anesthesia Complications History of PONV No Hx of PONV and No Hx of Motion Sickness Social History Smoking Status: Never smoker Do You Dip or Chew Tobacco: No Hx Alcohol Use: No Hx Substance Use: No substance use type: does not use Physical Exam Vital Signs Last Vital Signs Temp 36.9 C 01/15/20 19:09 Pulse 89 01/15/20 19:09 Resp 17 01/15/20 19:09 BP 124/65 01/15/20 19:09 Pulse Ox 97 01/15/20 19:09 Testing Laboratory Results 01/15/20 07:01 01/15/20 07:01 PT 11.3 Seconds (9.0-12.0) 01/15/20 07:01 INR 1.1 (0.9-1.1) 01/15/20 07:01
[2020-01-15] MEDS: CLINDAMYCIN 600 MG in DEXTROSE 5% 50 ML IV SCH (20:27)
[2020-01-16] MEDS: CLINDAMYCIN 600 MG in DEXTROSE 5% 50 ML IV SCH ×3 (02:07→19:19)
[2020-01-16] MEDS: ACETAMINOPHEN 325 MG TAB PO PRN ×2 (03:20→18:13)
[2020-01-16] MEDS: PIPERACILLIN/TAZOBACTAM 3.375 GM in DEXTROSE 5% 100 ML IV SCH ×3 (03:20→19:19)
[2020-01-16 05:55] LABS: Hematocrit (blood only) 36.5 % (37-47); Hemoglobin 12.4 g/dL (12.0-16.0); Mean Corpuscular Hemoglobin 27.9 pg (25-34); Mean Corpuscular Volume 82.2 fL (80-100); Mean Platelet Volume 11.2 fL (7.4-10.4); Platelet Count 226 K/uL (130-400); RDW Coefficient of Variation 14.6 % (11.5-14.5); RDW Standard Deviation 44.3 fL (36.4-46.3); Red Blood Count 4.44 M/uL (4.2-5.4); White Blood Count 9.42 K/uL (4.8-10.8)
[2020-01-16 06:24] LABS: Albumin Level 3.6 gm/dl (3.4-5.0); BUN Creatinine Ratio 10.9 (10-20); Calcium 8.6 mg/dl (8.5-10.1); Creatinine Clr Calc Pharmacy 112.6 ml/min; Est GFR (African American) 123.1; Est GFR (Non-African American) 106.2; Potassium 3.7 mmol/L (3.5-5.1)
[2020-01-16 06:27] LABS: Albumin Globulin Ratio 0.9 (0.9-2); Bilirubin,Total 0.5 mg/dl (0.2-1); Globulin 3.8 gm/dl (2.5-4.0); Total Protein 7.4 gm/dl (6.4-8.2)
[2020-01-16] MEDS ORDERED: ACETAMINOPHEN 1000 MG/100 ML IV IV ONE (07:13)
[2020-01-16] MEDS ORDERED: fentaNYL citrate 100 MCG/2 ML VIAL ONE ×4 (07:16→09:25)
[2020-01-16] MEDS ORDERED: NEOSTIGMINE METHYLSULFATE 5 MG/5 ML SYR ONE (07:16)
[2020-01-16] MEDS ORDERED: GLYCOPYRROLATE 0.2 MG/ML VIAL ONE (07:16)
[2020-01-16] MEDS ORDERED: LIDOCAINE HCL 2% 2 ML VIAL/AMP(20MG/ML) INFIL ONE (07:16)
[2020-01-16] MEDS ORDERED: PROPOFOL IV EMULSION 10 MG/ML 20 ML VIAL IV ONE (07:16)
[2020-01-16] MEDS ORDERED: ROCURONIUM BROMIDE 10 MG/ML 5 ML VIAL ONE (07:16)
[2020-01-16] MEDS ORDERED: DEXAMETHASONE SOD INJ 4 MG/ML VIAL ONE (07:16)
[2020-01-16] MEDS ORDERED: ONDANSETRON INJ 2 MG/ML 2 ML VIAL ONE (07:16)
[2020-01-16] MEDS ORDERED: MIDAZOLAM HCL 1 MG/ML 2ML VIAL ONE (07:17)
--- NOTE | 2020-01-16 07:28 | History & Physical Bridge Note ---
Date of Service January 16, 2020 History & Physical Bridge Note I have examined the patient, reviewed the History & Physical and in the interval since the performance of the History & Physical I have noted the following changes of clinical significance: no changes noted. The swelling has gone down that now the only area is the submandibular and intraoral surrounding the attempted surgical site # 32 and localized swelling around # 17. I will plan procedure now. Reviewed with Lily and her .
[2020-01-16] MEDS ORDERED: BUPIVACAINE/EPINEPHRINE 0.5% 1:200,000 1.8 ML CARP ONE (07:34)
[2020-01-16] MEDS ORDERED: CHLORHEXIDINE GLUCONATE 0.12% 480 ML ONE (07:34)
[2020-01-16] MEDS ORDERED: ATROPINE SULFATE 0.1 MG/ML 10ML SYR IV PRN (07:36)
[2020-01-16] MEDS ORDERED: ONDANSETRON INJ 2 MG/ML 2 ML VIAL IV PRN (07:36)
[2020-01-16] MEDS ORDERED: HYDROmorphone INJ 1 MG/ML SYRINGE IV PRN (07:36)
[2020-01-16] MEDS ORDERED: NALOXONE HCL 0.4 MG/1 ML VIAL/CARP IV PRN (07:36)
[2020-01-16] MEDS ORDERED: PROMETHAZINE HCL 12.5 MG in SODIUM CHLORIDE 0.9% 50 ML IV PRN (07:36)
[2020-01-16] MEDS ORDERED: ePHEDrine sulfate 50 MG/ML AMP IV PRN (07:36)
[2020-01-16] MEDS ORDERED: FLUMAZENIL 0.1 MG/1 ML 10 ML VIAL IV PRN (07:36)
--- NOTE | 2020-01-16 09:00 | Post Operative Brief Note ---
PG Immediate Post Op with CF Date of Surgery January 16, 2020 Pre & Post Diagnosis Operation Date: 01/16/20 07:30 Pre-Op Diagnosis: Acute Facial Infection from infected lower molar Post-Op Diagnosis: Acute Facial Infection (same) I identified the patient and participated in the time-out.: Yes Procedure Operation Date: 01/16/20 07:30 Actual Procedures p Incision and Drainage of Right Facial Infection; Removal of Impacted Teeth #17 and #32 - Tez Valencia, ELISHA Surgeon Tez Valencia, ELISHA Director Of Food And Nutrition Services none Estimated Blood Loss 5 Findings Consistent with Post-Op Diagnosis Specimens Specimen Description: Microbiology #1- Drainage from submandibular infection
[2020-01-16] MEDS: fentaNYL citrate 100 MCG/2 ML VIAL IV PRN ×4 (09:25→09:40)
--- NOTE | 2020-01-16 09:27 | Operative Report ---
Post Operative Report Pre & Post Diagnosis Operation Date: 01/16/20 07:30 Pre-Op Diagnosis: Acute Facial Infection right sub submandibular, floor of mouth ( Dx as Orlando`s) Post-Op Diagnosis: Acute Facial Infection (same) I identified the patient and participated in the time-out.: Yes Procedure Operation Date: 01/16/20 07:30 Actual Procedures p Incision and Drainage of Right Facial Infection; Removal of Impacted Teeth #17 and #32 - Tez Valencia, DMD Pre-op= Acute facial infection right side early onset Orlando`s angina secondary to infection from impacted and infected wisdom tooth # 32 and localized infection of # 17 Once cleared for surgery general anesthesia was achieved, the eyes were protecte d by the anesthesia dept criteria.. A time out was take for patient ID, antibiotics, equipment and position verification once all agreed the procedure began. Local anesthesia was given into each area using Marcaine with a vasoconstrictor ( 1.8 ml per site). A throat pack was placed after the oral cavity was irrigated with saline. Once a surgical level of anesthesia was obtained and the local anesthesia was given time for the blocks the surgery was started. I turned my attention to the upper wisdom teeth first. Incision and Drainage of right side facial abscess Over the last 24 Hrs the infection with IV antibiotics organized and was ready for drainage. The infected pointed in the right posterior floor of the mouth. As soon as the mouth was opened for intubation the infection started to drain. After intubation and prepping I drained the floor of the mouth with a large muco periosteal incision. A hemostat was introduced and a lot of pus was expressed, it was cultured. I decided that this site was all that was needed as there was only indurated tissue in submandibular and mental space which has improved greatly over the last 24 hrs. With the I&D and removal of he cause of infection (fractured wisdom teeth) + IV antibiotics this is the treatment of choice. Lower wisdom teeth CBI # 17 and 32 The full thick muco-periosteal flap was made on the external oblique ridge to avoid the lingual nerve. The flap was reflected to expose the impacted tooth. The drill with a round bur was used to remove bone, a fissure bur was used to split the tooth.The lingual plate was protected. The tooth was removed with a 301 elevator, the nerve was intact, there was no bleeding. The bone was trimmed, smoothed and the flap was closed with a few 2-0 chromic sutures. When all the wisdom teeth were removed I inspected the sites to insure all bleeding was controlled. I removed the throat pack and suctioned the throat. On Oral -gastric tube was passed given the pus drainage from the I&D. Bilateral gauze pressure dressings were placed. All instrument and sponge count was correct. the patient was allowed to awake from the anesthesia. Once full awake the anesthesia tube was removed and the patient was taken to the recovery room (ICU) with all vital sign stable. She will RTC to the floor for 24 hrs of additional IV antibiotics I will follow and consider D/C Saturday with out patient follow up. The patient tolerated the surgery very well. I will follow the patient in my office, Rx and instructions will be given upon discharge. Surgeon Tez Valencia, DMD Senior Wind Energy Consultant none Estimated Blood Loss 5 Findings Consistent with Post-Op Diagnosis Specimens PUS was infeced right submandibular and floor of mouth right side Description of Procedure I&D and removal of infected wisdom teeth I attest to the content of the Intraoperative Record and any orders documented therein. Any exceptions are noted below.
--- NOTE | 2020-01-16 09:58 | Anesthesiology Progress Note ---
Date of Service January 16, 2020 Anesthesia Post Procedure Vital Signs Vital Signs: Temp Pulse Pulse Resp BP BP Pulse Ox 01/16/20 09:56 36.7 C 65 18 127/82 100 01/16/20 09:45 36.7 C 69 16 130/78 100 01/16/20 09:35 72 16 133/85 99 01/16/20 09:25 82 24 132/84 100 01/16/20 09:15 91 H 16 134/80 100 01/16/20 09:09 36.8 C 91 H 13 112/68 100 01/16/20 07:04 36.6 C 72 18 101/56 L 99 01/16/20 03:01 36.4 C L 72 16 115/59 L 98 01/15/20 23:28 36.7 C 72 16 107/65 98 01/15/20 19:09 36.9 C 89 17 124/65 97 01/15/20 15:18 36.7 C 72 17 108/61 97 01/15/20 15:00 83 01/15/20 10:39 83 01/15/20 10:38 36.5 C 78 18 120/78 97 01/15/20 10:00 79 18 107/67 93 Pain Intensity Mouth: Pain Intensity: 6 Transfer of Care Handoff Completed per policy Notes Mental Status: alert / awake / arousable Patient Amnestic to Procedure: Yes Nausea / Vomiting: adequately controlled Pain: adequately controlled Airway Patency, RR, SpO2: stable & adequate BP & HR: stable & adequate Hydration State: stable & adequate Anesthetic Complications: no major complications apparent
[2020-01-16] MEDS: MULTIVITAMIN TAB PO SCH (10:42)
--- NOTE | 2020-01-16 11:02 | Emergency Department Note ---
Entered by Princess Hernandez acting as a scribe for Maribell Adams DO History of Present Illness General Chief complaint: Throat Pain Stated complaint: DIFFICULTY SWALLOWING,SWELLING Time Seen by Provider: 01/15/20 06:33 Source: patient History of Present Illness Onset (ago): day(s) 3 Location: mouth Pain Consistency: + other (worsening ) Maximum Pain Intensity: 2 Quality: + other (mouth infection) Associated symptoms: + cough, + fever/chills (positive chills; negative fever ) and + other (positive right facial swelling; positive difficulty swallowing; positive pain with swallowing; positive throat pain; negative bleeding or discharge; negative difficulty breathing; negative diarrhea); no nausea/vomiting and no shortness of breath Treatments prior to arrival: other (Amoxicillin) The patient is a 29 year old female who presents to the Emergency Room with complaints of a worsening mouth infection that began 3 days prior to arrival. The patient states that she got a wisdom tooth extracted Saturday, 3 days ago, but states that this tooth broke and the entire tooth was not able to be removed. The patient states that since this time it feels as though the right side of her face is swollen. The patient states that it feels as though the swelling is pushing up on her tongue. She states that she feels as though she is unable to swallow anything more than water, stating that it feels like there is "mucous" stuck. The patient denies shortness of breath or feeling like it is hard to breathe. The patient states that she has persistent throat pain and states that it hurts to swallow. She reports a slight cough during this time. The patient states that she has not noticed any bleeding or discharge from the tooth extraction site. She reports chills, but denies fevers. The patient denies chest pain, nausea, vomiting, and diarrhea. The patient's states that the patient was given a prescription for 500 mg of Amoxicillin and the patient states that she took her second dose of this at 0500 this morning, 1.5 hours prior to arrival. The patient states that she has not had any vaccinations. Patient is part of the [facility]. 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 and A total of 10 systems reviewed and were otherwise negative Physical Exam Vital Signs Vital Signs - 24 hr 01/15/20 06:11 01/15/20 07:07 01/15/20 07:30 Temperature 97.9 F Temperature Source Oral Pulse Rate 93 H 79 68 Pulse Rate from SpO2 Sensor 79 68 Respiratory Rate 16 19 17 Respiratory Effort / Characteristics Non-Labored Spontaneous Respiratory Depth Normal Blood Pressure 130/77 124/74 116/70 Blood Pressure Mean 94 82 79 Blood Pressure Position Sitting Pulse Oximetry 100 98 99 Oxygen Delivery Method Room Air Sepsis Recent Fever Within 48 Hours No Sepsis New/Unexplained Change in Mental Status No Sepsis Action Taken by Nursing No Action Required 01/15/20 08:30 01/15/20 09:00 01/15/20 09:30 Temperature Temperature Source Pulse Rate 70 74 84 Pulse Rate from SpO2 Sensor 71 73 87 Respiratory Rate 19 16 21 Respiratory Effort / Characteristics Respiratory Depth Blood Pressure 115/71 122/71 124/89 Blood Pressure Mean 83 82 95 Blood Pressure Position Pulse Oximetry 100 95 98 Oxygen Delivery Method Sepsis Recent Fever Within 48 Hours Sepsis New/Unexplained Change in Mental Status Sepsis Action Taken by Nursing 01/15/20 10:00 Temperature Temperature Source Pulse Rate 79 Pulse Rate from SpO2 Sensor 79 Respiratory Rate 18 Respiratory Effort / Characteristics Respiratory Depth Blood Pressure 107/67 Blood Pressure Mean 82 Blood Pressure Position Pulse Oximetry 93 Oxygen Delivery Method Sepsis Recent Fever Within 48 Hours Sepsis New/Unexplained Change in Mental Status Sepsis Action Taken by Nursing GENERAL: Alert, well appearing, well nourished, no distress, non-toxic. No tripoding and no drooling. EYE EXAM: normal conjunctiva, PERRL and EOM's grossly intact OROPHARYNX: Elevation of the tongue secondary to edema. Tenderness to percussion to the right lower posterior molars. No fluctuance along the gum line. No obvious drainage or bleeding. Unable to completely view posterior pharynx due to edema and patient's intolerance of any tongue depression. Uvula does appear midline, but could not be viewed in its entirety. No obvious tonsillar hypertrophy. No mucocutaneous lesions noted in the mouth. Obvious right facial swelling, worse over the jaw line. Submandibular and submental swelling noted also, tenderness to palpation. No stridor. Trismus noted. No exudate, no erythema, lips, buccal mucosa, and mucous membranes are moist. NECK: supple, no nuchal rigidity, no adenopathy, non-tender, no stridor LUNGS: Clear to auscultation. Normal chest wall mechanics, no w/r/r HEART: no murmurs, S1 normal and S2 normal ABDOMEN: abdomen soft, non-tender, normo-active bowel sounds, no masses, no rebound or guarding. BACK: Back is symmetrical on inspection and there is no deformity, no midline tenderness, no CVA tenderness. SKIN: no rashes and no bruising UPPER EXTREMITIES: upper extremities are grossly normal. FROM, nml pulses b/l. LOWER EXTREMITIES: No pitting edema. FROM, nml pulses b/l. NEURO EXAM: Normal sensorium, cranial nerves II-XII grossly intact, normal speech, no gross weakness of arms, no gross weakness of legs. Course Course 0638: Past medical records reviewed. The patient was evaluated in room B3B. A complete history and physical exam was performed. 0831: I discussed the case with Pharmacy and we discussed antibiotic possibilities. 0838: I discussed the case with Dr. Valencia-Oral Surgery who states that he will evaluate the patient. Does not feel an ENT consultation is required, but did ask that the patient be admitted to medicine. 0847: I checked on and updated the patient. 0922: I discussed the case with Jennifer Manrique-[facility] who accepts the patient for further evaluation as part of the [facility] service. Administered Medications Acetaminophen (Tylenol) 650 mg PO Q4H PRN PRN Reason: Moderate Pain Stop: 02/14/20 10:35 Last Admin: 01/16/20 03:20 Dose: 650 mg Documented by: [id number] Clindamycin Phosphate 600 mg/ (Dextrose) 54 mls @ 100 mls/hr IV Q8H OLGA; Protocol Stop: 01/22/20 18:59 Last Infusion: 01/16/20 02:36 Dose: 0 mls/hr Documented by: [id number] Admin: 01/16/20 02:07 Dose: 100 mls/hr Documented by: [id number] Infusion: 01/15/20 21:00 Dose: 0 mls/hr Documented by: [id number] Admin: 01/15/20 20:27 Dose: 100 mls/hr Documented by: [id number] Piperacillin Sod/Tazobactam (Sod 3.375 gm/ Dextrose) 115 mls @ 28.75 mls/hr IV Q8H OLGA; Protocol Stop: 01/25/20 11:59 Last Infusion: 01/16/20 07:25 Dose: 0 mls/hr Documented by: [id number] Admin: 01/16/20 03:20 Dose: 28.7 mls/hr Documented by: [id number] Infusion: 01/16/20 01:15 Dose: 0 mls/hr Documented by: [id number] Admin: 01/15/20 20:52 Dose: 28.8 mls/hr Documented by: [id number] Infusion: 01/15/20 15:30 Dose: 0 mls/hr Documented by: [id number] Admin: 01/15/20 11:30 Dose: 28.8 mls/hr Documented by: [id number] Multivitamins (Multivitamin Tab) 1 tab PO DAILY [facility] Stop: 02/15/20 08:59 Last Admin: 01/16/20 10:42 Dose: Not Given Documented by: [id number] Discontinued Medications Bupivacaine HCl (Marcaine/Epinephrine Carp) Confirm Administered Dose 10.8 ml .ROUTE .STK-MED ONE Stop: 01/16/20 07:35 Last Admin: 01/16/20 08:52 Dose: 7.2 ml Documented by: [id number] Chlorhexidine Gluconate (Peridex) Confirm Administered Dose 480 ml .ROUTE .STK- MED ONE Stop: 01/16/20 07:35 Last Admin: 01/16/20 08:53 Dose: 10 ml Documented by: [id number] Dexamethasone (Decadron) 10 mg IV NOW STA Stop: 01/15/20 06:51 Last Admin: 01/15/20 07:08 Dose: 10 mg Documented by: [id number] Fentanyl Citrate (Fentanyl Citrate) 25 mcg IV Q5M PRN PRN Reason: PACU Use Only-Pain Stop: 01/16/20 15:38 Last Admin: 01/16/20 09:40 Dose: 100 mcg Documented by: [id number] Admin: 01/16/20 09:35 Dose: 25 mcg Documented by: [id number] Admin: 01/16/20 09:30 Dose: 25 mcg Documented by: [id number] Admin: 01/16/20 09:25 Dose: 25 mcg Documented by: [id number] Fentanyl Citrate (Fentanyl Citrate) Confirm Administered Dose 100 mcg .ROUTE .STK-MED ONE Stop: 01/16/20 09:26 Last Admin: 01/16/20 10:43 Dose: Not Given Documented by: [id number] Sodium Chloride (Nss 1000ml) 1,000 mls @ 999 mls/hr IV .Q1H1M ONE Stop: 01/15/20 07:50 Last Infusion: 01/15/20 08:34 Dose: 0 mls/hr Documented by: [id number] Admin: 01/15/20 07:07 Dose: 999 mls/hr Documented by: [id number] Acetaminophen (Ofirmev) 1,000 mg in 100 mls @ 400 mls/hr IV NOW STA Stop: 01/15/20 07:04 Last Infusion: 01/15/20 07:25 Dose: 0 mls/hr Documented by: [id number] Admin: 01/15/20 07:07 Dose: 400 mls/hr Documented by: [id number] Piperacillin Sod/Tazobactam Sod (Zosyn) 4.5 gm in 120 mls @ 240 mls/hr IV NOW ONE Stop: 01/15/20 07:19 Last Infusion: 01/15/20 08:14 Dose: 0 mls/hr Documented by: [id number] Admin: 01/15/20 07:25 Dose: 240 mls/hr Documented by: [id number] Clindamycin Phosphate 900 mg/ (Dextrose) 56 mls @ 112 mls/hr IV TODAY@1100 ONE Stop: 01/15/20 11:29 Last Infusion: 01/15/20 12:04 Dose: 0 mls/hr Documented by: [id number] Admin: 01/15/20 11:30 Dose: 112 mls/hr Documented by: [id number] Ioversol (Optiray 320 100ml) 94 ml IV ONCE PRN PRN Reason: Interaction Checking Stop: 01/19/20 07:56 Last Admin: 01/15/20 07:57 Dose: 94 ml Documented by: [id number] Ketorolac Tromethamine (Toradol) 10 mg IV NOW ONE Stop: 01/15/20 09:52 Last Admin: 01/15/20 10:01 Dose: 10 mg Documented by: [id number] Medical Decision Making Differential Diagnosis Differential diagnosis: Etiologies such as viral syndrome, tonsillitis, streptococcal pharyngitis, mononucleosis, peritonsillar abscess, retropharyngeal abscess, Orlando's angina, facial cellulitis, dental abscess, Lemierre's syndrome, otitis, pneumonia, influenza, as well as others were entertained. Medical Records Attestation: I reviewed the patient's medical records. Home Medications Current Medication List: was personally reviewed by me Laboratory Data Attestation: I reviewed the patient's lab results. Result diagrams: 01/16/20 05:32 01/16/20 05:32 Lab Results 01/15/20 01/15/20 01/15/20 Range/Units 07:01 07:01 07:01 WBC 7.64 (4.8-10.8) K/uL RBC 4.41 (4.2-5.4) M/uL Hgb 12.4 (12.0-16.0) g/dL Hct 36.5 L (37-47) % MCV 82.8 (80-100) fL MCH 28.1 (25-34) pg MCHC 34.0 (32-36) g/dL RDW Std Deviation 43.8 (36.4-46.3) fL RDW Coeff of Julien 14.4 (11.5-14.5) % Plt Count 188 (130-400) K/uL MPV 11.3 H (7.4-10.4) fL Immature Gran % (Auto) 0.1 % Neut % (Auto) 78.5 % Lymph % (Auto) 11.8 % [place] % (Auto) 8.6 % Eos % (Auto) 0.9 % Baso % (Auto) 0.1 % Immature Gran # (Auto) 0.01 (0.00-0.02) K/uL Neut # (Auto) 5.99 (1.4-6.5) K/uL Lymph # (Auto) 0.90 L (1.2-3.4) K/uL [place] # (Auto) 0.66 H (0.11-0.59) K/uL Eos # (Auto) 0.07 (0-0.5) K/uL Baso # (Auto) 0.01 (0-0.2) K/uL PT 11.3 (9.0-12.0) Seconds INR 1.1 (0.9-1.1) Sodium 138 (136-145) mmol/L Potassium 3.9 (3.5-5.1) mmol/L Chloride 108 H (98-107) mmol/L Carbon Dioxide 25 (21-32) mmol/L Anion Gap 5.0 (3-11) BUN 9 (7-18) mg/dl Creatinine 0.71 (0.6-1.2) mg/dl Est Cr Clr Drug Dosing 120.3 ml/min Est GFR ( Amer) 131.5 Est GFR (Non-Af Amer) 113.5 BUN/Creatinine Ratio 12.7 (10-20) Glucose 103 H (70-99) mg/dl Calcium 8.6 (8.5-10.1) mg/dl Total Bilirubin 0.6 (0.2-1) mg/dl AST 11 L (15-37) U/L ALT 28 (12-78) U/L Alkaline Phosphatase 35 L (45-117) U/L Total Protein 7.5 (6.4-8.2) gm/dl Albumin 3.8 (3.4-5.0) gm/dl Globulin 3.7 (2.5-4.0) gm/dl Albumin/Globulin Ratio 1.0 (0.9-2) TSH 1.940 (0.300-4.500) uIu/ml HCG, Qual (Negative) 01/15/20 Range/Units 07:01 WBC (4.8-10.8) K/uL RBC (4.2-5.4) M/uL Hgb (12.0-16.0) g/dL Hct (37-47) % MCV (80-100) fL MCH (25-34) pg MCHC (32-36) g/dL RDW Std Deviation (36.4-46.3) fL RDW Coeff of Julien (11.5-14.5) % Plt Count (130-400) K/uL MPV (7.4-10.4) fL Immature Gran % (Auto) % Neut % (Auto) % Lymph % (Auto) % [place] % (Auto) % Eos % (Auto) % Baso % (Auto) % Immature Gran # (Auto) (0.00-0.02) K/uL Neut # (Auto) (1.4-6.5) K/uL Lymph # (Auto) (1.2-3.4) K/uL [place] # (Auto) (0.11-0.59) K/uL Eos # (Auto) (0-0.5) K/uL Baso # (Auto) (0-0.2) K/uL PT (9.0-12.0) Seconds INR (0.9-1.1) Sodium (136-145) mmol/L Potassium (3.5-5.1) mmol/L Chloride (98-107) mmol/L Carbon Dioxide (21-32) mmol/L Anion Gap (3-11) BUN (7-18) mg/dl Creatinine (0.6-1.2) mg/dl Est Cr Clr Drug Dosing ml/min Est GFR ( Amer) Est GFR (Non-Af Amer) BUN/Creatinine Ratio (10-20) Glucose (70-99) mg/dl Calcium (8.5-10.1) mg/dl Total Bilirubin (0.2-1) mg/dl AST (15-37) U/L ALT (12-78) U/L Alkaline Phosphatase (45-117) U/L Total Protein (6.4-8.2) gm/dl Albumin (3.4-5.0) gm/dl Globulin (2.5-4.0) gm/dl Albumin/Globulin Ratio (0.9-2) TSH (0.300-4.500) uIu/ml HCG, Qual Negative (Negative) Imaging Data Radiologist's Impression: Radiology results as stated below per my review and the radiologist's interpretation: CT soft tissue neck w con CLINICAL HISTORY: 29 years-old Female presenting with swollen neck, dysphagia, recent dental procedure. TECHNIQUE: Multidetector CT of the neck was performed after the administration of intravenous contrast. IV contrast: 94 mL of Optiray 320. One or more dose lowering techniques were used consistent with the principles of ALARA (as low as reasonably achievable), including automatic exposure control, mA or kV adjustment to individual patient size, and/or use of iterative reconstruction. COMPARISON: None. CT DOSE (mGy.cm): The estimated cumulative dose is 564.37 mGy.cm. FINDINGS: Floors Buffer topogram: Unremarkable. Polypoid mucosal thickening in the right maxillary sinus and to a minimal extent in the left maxillary sinus. Remainder of the paranasal sinuses and mastoid air cells clear. Extensive debris in the external auditory canals, possibly dense cerumen. This appears to abut the bilateral tympanic membranes. Orbits normal. Parotid, submandibular, and thyroid glands normal. Numerous small cervical lymph nodes are likely reactive. Soft tissue swelling asymmetrically in the right premandibular region with subcutaneous fat infiltration. There is also thickening of the subjacent platysma. There is no periapical lucency identified. No extensive endodontic disease. Amalgam mildly degrades evaluation of the oral cavity. No significant buccal mucosal hyperemia. No convincing evidence of an odontogenic abscess. Foci of gas noted in the region of the right ankle the mandible. This may represent intravascular gas related to injection technique. This does not appear to be contained within a fluid collection. No soft tissue abscess. However, there is vague edema and fullness at the base of the tongue probably on the right. Associated mild infiltration of the right parapharyngeal fat. The parapharyngeal fat plane is not significantly displaced. The pharynx appears mildly effaced. Suspected thickening of the right aryepiglottic fold versus secretions. The epiglottis is not thickened. The larynx is patent. Lung apices clear. No prevertebral fluid. Mild infiltration in the anterior neck suspected e xtending along the anterior aspect of the thyroid gland. This is not appear to extend into the superior mediastinum. Cervical spine within normal limits. IMPRESSION: 1. Extensive infiltration and swelling consistent with edema involving the right perimandibular face as well as the right parapharyngeal region. There is no focal collection to suggest abscess. There is mild mass effect on the pharynx and questionable edema of the right aryepiglottic fold versus secretions. There is also suspected tracking of inflammatory changes along the anterior neck, which do not convincingly extend into the superior mediastinum. 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 2. No CT evidence of periapical abscess or extensive endodontic disease. No odontogenic abscess. The report will be called/faxed according to standard departmental protocol. ACT 112: Negative or not required by law. Results electronically sent 01/15/2020 8:16 AM to: Maribell Adams, DO Electronically signed by: Prem Snyder M.D. 01/15/2020 8:16 AM Blood Pressure Blood Pressure Findings: Normal blood pressure MDM Narrative This is a young otherwise healthy Roman Catholic female who presents with increased pain, swelling, difficulty swallowing, following a failed dental extraction in the community. Patient has had 2 doses of amoxicillin, however feels her symptoms are getting worse. Patient midst of chills but denies fevers. Patient found to have obvious facial swelling both laterally, along the jawline, submandibular and submental. Symptoms were concerning for Orlando's angina. Patient afebrile here and hemodynamically stable. No tripoding or drooling. Patient able to handle secretions. Trismus noted. Labs drawn and sent, and patient sent for CT soft tissue of the neck. CT concerning for Orlando's angina also. No fluid collection noted. Patient did report feeling improved following IV antibiotics, IV Tylenol, and IV Decadron here. Due to concern for airway involvement and progression of infection, I discussed with the patient continued inpatient monitoring and management. After some discussion with her she was in agreement. Due to no unassigned ENT coverage and infection likely originating from a dental procedure, I discussed the case with Dr. Valencia who feels patient can be safely managed here. Do not feel additional ENT consultation is necessary at this time. He will see the patient later on the day, but asked that the hospitalist service admit her as a precaution. Case discussed with Mahendra any hospitalist service. No evidence of acute or impending respiratory failure or airway occlusion. Patient able to lay back and rest comfortably in the bed, handling secretions, did report feeling improved here. Impression & Plan Facial swelling, Dental infection, Orlando's angina Discharge Plan Visit Data *Final* Discharge Date/Time: 01/15/20 10:23 Chief Complaint: Throat Pain Stated Complaint: DIFFICULTY SWALLOWING,SWELLING ED Provider: Maribell Adams Discharge Problem: Facial swelling, Dental infection, Orlando's angina Patient Disposition: Admitted As Inpatient Discharge Instructions Interventions: ED Discharge Assessment Last Done: 01/15/20 10:23 The scribe's documentation has been prepared under my direction and personally reviewed by me in its entirety. I confirm that the note above accurately reflects all work, treatment, procedures, and medical decision making performed by me.
--- NOTE | 2020-01-16 14:36 | Hospitalist Progress Note ---
Date of Service January 16, 2020 Assessment & Plan (1) [place]'s angina: rapidly improved with Zosyn and Clindamycin no fever, WBC 9k pain improved s/p incision and drainage of right lower mouth abscess, cultures sent (2) Dental infection: - CT face reviewed: *Extensive infiltration and swelling consistent with edema involving the right perimandibular face as well as the right parapharyngeal region. There is no focal collection to suggest abscess. There is mild mass effect on the pharynx and questionable edema of the right aryepiglottic fold versus secretions. There is also suspected tracking of inflammatory changes along the anterior neck, wh ich do not convincingly extend into the superior mediastinum. 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 *No CT evidence of periapical abscess or extensive endodontic disease. No odontogenic abscess. s/p incision and drainage of fluid collection today, culture sent impacted wisdom teeth 32 and 17 removed today packing in place no fever, WBC normal might be ready for d/c tomorrow per Dr. Valencia check labs in the morning continue Zosyn and Clindamycin - Pain control with tylenol as pt notes pain is tolerable currently, consider addition of IV toradol if needed (3) DVT prophylaxis: - teds, ambulatory CODE: FULL Dispo: From home, discharge possible within 2 days Admission and Anticipated Discharge Date Admission Date: January 15, 2020 Anticipated date of discharge: 01/17/20 Subjective patient seen after OR today reviewed OR report, Dr. Valencia performed I&D of abscess in right lower floor of mouth pus extracted and cultured removal of wisdom teeth # 17 and # 32 patient with increased pain after surgery, packing in mouth d/w RN, removed some packing, no blood no fever or chills labs show WBC of 9k, Hb 12, Cr is 0.7 and electrolytes stable appreciate Dr. Valencia's recommendations, may be ready for d/c tomorrow Review of Systems Review of Systems: All systems reviewed & are unremarkable except as noted in HPI & below Constitutional: no fever Ear, Nose, Mouth, Throat: + dry mouth, + dental pain (Severe, bilateral) and + dental abscess Physical Exam Constitutional: WD/WN, vitals as above Eyes: PERRL, conjunctivae normal, anicteric sclerae ENMT: Ears: no external ear abnormality Nose: + facial edema and + facial tenderness Mouth: + poor dentition Throat: + posterior oropharynx abnormality (swelling, packing) Neck: + submandibular swelling; no tracheal deviation and no neck crepitus Thyroid: normal thyroid Respiratory: normal respiratory effort, lungs clear to auscultation Cardiovascular: RRR, no murmur, no edema Gastrointestinal (Abdomen): normal bowel sounds, soft, nontender, no hepatosplenomegaly Musculoskeletal: no cyanosis or clubbing, extremities motor strength 5/5 Skin: no rashes, warm and dry Neurologic: patellar DTR's 2+ bilat, sensation intact and PERRL, EOMI, accommodation nl, no face palsy, no dysarthria Psychiatric: A+Ox3, euthymic affect Lymphatic: no cervical or axillary lymphadenopathy Results & Data ([facility]) Vital Signs (Past 12 Hours) Vital Signs Temp Pulse Pulse Resp BP Pulse Ox 01/16/20 13:30 37.1 C 71 16 115/70 96 01/16/20 12:27 36.8 C 70 17 121/74 97 01/16/20 11:30 36.9 C 68 18 121/77 96 01/16/20 11:12 82 01/16/20 11:00 37.1 C 79 20 122/75 98 01/16/20 10:33 36.8 C 71 18 127/83 97 01/16/20 10:20 36.9 C 79 18 125/80 97 01/16/20 10:05 36.7 C 68 18 127/81 100 01/16/20 09:55 36.7 C 65 18 127/82 100 01/16/20 09:45 36.7 C 69 16 130/78 100 01/16/20 09:35 72 16 133/85 99 01/16/20 09:25 82 24 132/84 100 01/16/20 09:15 91 H 16 134/80 100 01/16/20 09:09 36.8 C 91 H 13 112/68 100 01/16/20 07:04 36.6 C 72 18 101/56 L 99 01/16/20 03:01 36.4 C L 72 16 115/59 L 98 Laboratory Results Laboratory Results - last 24 hr 01/16/20 01/16/20 05:32 05:32 WBC 9.42 RBC 4.44 Hgb 12.4 Hct 36.5 L MCV 82.2 MCH 27.9 MCHC 34.0 RDW Std Deviation 44.3 RDW Coeff of Julien 14.6 H Plt Count 226 MPV 11.2 H Sodium 139 Potassium 3.7 Chloride 110 H Carbon Dioxide 23 Anion Gap 6.0 BUN 8 Creatinine 0.75 Est Cr Clr Drug Dosing 112.6 Est GFR ( Amer) 123.1 Est GFR (Non-Af Amer) 106.2 BUN/Creatinine Ratio 10.9 Glucose 123 H Calcium 8.6 Total Bilirubin 0.5 AST 10 L ALT 26 Alkaline Phosphatase 36 L Total Protein 7.4 Albumin 3.6 Globulin 3.8 Albumin/Globulin Ratio 0.9 Medications Administered Current Inpatient Medications Acetaminophen (Tylenol) 650 mg PO Q4H PRN PRN Reason: Moderate Pain Stop: 02/14/20 10:35 Last Admin: 01/16/20 18:13 Dose: 650 mg Documented by: Clindamycin Phosphate 600 mg/ (Dextrose) 54 mls @ 100 mls/hr IV Q8H OLGA; Protocol Stop: 01/22/20 18:59 Last Infusion: 01/16/20 19:57 Dose: Infused Documented by: Piperacillin Sod/Tazobactam (Sod 3.375 gm/ Dextrose) 115 mls @ 28.75 mls/hr IV Q8H OLGA; Protocol Stop: 01/25/20 11:59 Last Admin: 01/16/20 19:19 Dose: 28.7 mls/hr Documented by: Miscellaneous Information (Consult) 1 ea N/A UD PRN PRN Reason: Consult Stop: 02/14/20 06:49 Multivitamins (Multivitamin Tab) 1 tab PO DAILY [facility] Stop: 02/15/20 08:59 Last Admin: 01/16/20 10:42 Dose: Not Given Documented by: Ondansetron HCl (Zofran) 4 mg IV Q4H PRN PRN Reason: Nausea And Vomiting Stop: 02/14/20 10:35 PG Care Time/CCT Total # of Minutes Spent Total Time Spent with Patient: Total time spent is greater than 50% in coordination of care (as documented) at patient's floor/unit and/or counseling patient: Coding Level of Care Code 82016 Subseq Hosp Care Lvl 2 Diagnoses [place]'s angina K12.2 Dental infection K04.7 DVT prophylaxis Z29.9
[2020-01-17] MEDS: ACETAMINOPHEN 325 MG TAB PO PRN (03:18)
[2020-01-17] MEDS: CLINDAMYCIN 600 MG in DEXTROSE 5% 50 ML IV SCH (03:21)
[2020-01-17] MEDS: PIPERACILLIN/TAZOBACTAM 3.375 GM in DEXTROSE 5% 100 ML IV SCH (03:22)
[2020-01-17 06:32] LABS: Hematocrit (blood only) 34.2 % (37-47); Hemoglobin 11.5 g/dL (12.0-16.0); Mean Corpuscular Hemoglobin 28.3 pg (25-34); Mean Corpuscular Hgb Conc 33.6 g/dL (32-36); Mean Corpuscular Volume 84.2 fL (80-100); Mean Platelet Volume 10.9 fL (7.4-10.4); Platelet Count 227 K/uL (130-400); RDW Coefficient of Variation 14.6 % (11.5-14.5); RDW Standard Deviation 45.4 fL (36.4-46.3); Red Blood Count 4.06 M/uL (4.2-5.4); White Blood Count 7.26 K/uL (4.8-10.8)
[2020-01-17 07:09] LABS: Albumin Level 3.2 gm/dl (3.4-5.0); BUN Creatinine Ratio 19.1 (10-20); Calcium 8.5 mg/dl (8.5-10.1); Creatinine Clr Calc Pharmacy 127.5 ml/min; Est GFR (African American) 136.4; Est GFR (Non-African American) 117.7; Potassium 3.5 mmol/L (3.5-5.1)
[2020-01-17 07:12] LABS: Albumin Globulin Ratio 0.9 (0.9-2); Bilirubin,Total 0.4 mg/dl (0.2-1); Globulin 3.4 gm/dl (2.5-4.0); Total Protein 6.6 gm/dl (6.4-8.2)
[2020-01-17] MEDS: MULTIVITAMIN TAB PO SCH (08:11)
--- NOTE | 2020-01-17 10:02 | Progress Note ---
Date of Service January 17, 2020 Assessment & Plan Admission and Anticipated Discharge Date Admission Date: January 15, 2020 Anticipated date of discharge: 01/17/20 Subjective POST OP NOTE: Day # 1 The surgery went very well, healing is excellent. Oral care is good, swelling as expected but very mild. Tissue tone =healthy Reviewed oral care=suggested massage, heat, oral rinse, brushing teeth, soft dies. Reviewed diet, massage, exercise and continued home/oral care RTC Dr Valencia on January 28 at 10 AM for follow up Doing well from recent I&D Plan; OK for D/C is OK by [facility] medicine --- I will order: Augmentin, Peridex, Vicodin 5/325 for out patient meds. Results & Data ([facility]) Vital Signs (Past 12 Hours) Vital Signs Temp Pulse Pulse Resp BP Pulse Ox 01/17/20 07:25 37.1 C 60 18 110/70 97 01/17/20 03:03 36.9 C 76 18 114/69 98 01/17/20 00:03 71 01/16/20 23:21 36.8 C 69 18 114/65 97 PG Care Time/CCT Total # of Minutes Spent Total Time Spent with Patient: Total time spent is greater than 50% in coordination of care (as documented) at patient's floor/unit and/or counseling patient: Coding Level of Care Code None
--- NOTE | 2020-01-17 10:49 | Discharge Summary ---
Date of Service January 17, 2020 Admission HPI Per Admitting Provider This is an Jamie 29 yo F with PMHx of multiple dental caries, previous extraction of upper wisdome teeth, who presents after attempting to have the left inferior wisdom tooth extracted, performed by a person who is not a dentist or a physician, last Saturday02/08/2020. Patient notes that her tooth is now cracked, and that pain began on Saturday afternoon and worsened throughout the next 2 days. She reports that she called on Saturday to that person who preformed the attempted extraction, and was given a prescription for amoxicillin 500 mg TID, and has taken 2 doses so far, the last at 0500 this morning. She reports having worsening swelling involving the right jaw, difficulty with opening her mouth, tongue swelling, and difficulty swallowing. She denies any foul or blood-like taste, she denies any respiratory complaints, no difficulty with breathing, deep breaths, cough, etc. she reports that the right bottom wisdom teeth has also had multiple cavities and she would like to have it extracted if they are extracting the left. She brushes her teeth routinely twice daily, and has been using an antiseptic mouthwash in the past few days. Principal Diagnosis Dental infection with early [place]'s angina Discharge Exam Constitutional WD/WN, vitals as above Eyes PERRL, conjunctivae normal, anicteric sclerae ENMT Ears: no external ear abnormality Nose: + facial edema and + facial tenderness Mouth: + poor dentition Throat: + posterior oropharynx abnormality (swelling, packing) Neck + submandibular swelling; no tracheal deviation and no neck crepitus Thyroid: normal thyroid Respiratory normal respiratory effort, lungs clear to auscultation Cardiovascular RRR, no murmur, no edema Gastrointestinal (Abdomen) normal bowel sounds, soft, nontender, no hepatosplenomegaly Musculoskeletal no cyanosis or clubbing, extremities motor strength 5/5 Skin no rashes, warm and dry Neurologic patellar DTR's 2+ bilat, sensation intact and PERRL, EOMI, accommodation nl, no face palsy, no dysarthria Psychiatric A+Ox3, euthymic affect Lymphatic no cervical or axillary lymphadenopathy Discharge Data Allergies Allergy/AdvReac Type Severity Reaction Status Date / Time latex Allergy Unknown irritation Verified 09/02/17 13:57 on contact Consultations 01/15/20 09:51 ED Decision to Admit Stat 01/15/20 10:36 Consult Case Management - Discharge Planning Routine Consult Oromaxillofacial Surgery Routine Procedures Performed Operation Date: 01/16/20 07:30 Actual Procedures p Incision and Drainage of Right Facial Infection; Removal of Impacted Teeth #17 and #32 - Tez Valencia, DMD Ordered Studies 01/15/20 06:50 CT soft tissue neck w con Stat Hospital Course (1) [place]'s angina: rapidly improved with Zosyn and Clindamycin no fever, WBC is 7k pain improved s/p incision and drainage of right lower mouth abscess, cultures sent discharge home on Augmentin (2) Dental infection: - CT face reviewed: *Extensive infiltration and swelling consistent with edema involving the right perimandibular face as well as the right parapharyngeal region. There is no focal collection to suggest abscess. There is mild mass effect on the pharynx and questionable edema of the right aryepiglottic fold versus secretions. There is also suspected tracking of inflammatory changes along the anterior neck, which do not convincingly extend into the superior mediastinum. 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 *No CT evidence of periapical abscess or extensive endodontic disease. No odontogenic abscess. s/p incision and drainage of fluid collection on 01/15 impacted wisdom teeth 32 and [address] no fever, WBC normal okay for discharge per Dr. Valencia, sent on Augmentin, [place] for pain follow up on 01/28 in the office (3) DVT prophylaxis: - teds, ambulatory CODE: FULL Dispo: From home, discharge possible within 2 days Total Time Total Time Spent Total Time Spent (In Minutes): 31 minutes Total Time Includes: Examination of the Patient, Discharge Planning, Medication Reconciliation and Communication With Other Providers (Dr. Valencia) Discharge Plan Discharge Items Patient Disposition: Home - Self-Care Reason For Visit: LUDWIGS ANGINA Discharge Diagnosis: S/P oral/facial infection Condition on Discharge: Good Goals: complete course of antibiotics follow up with Dr. Valencia Activity: Resume your previous activity Lifting: Gradually increase as tolerated Bathing: No limitations Exercise/Sports: Gradually increase as tolerated Driving/Machine Use: Resume 3 days after discharge Non-emergency contact: Surgeon Call non-emergency contact if: you have any medication questions, your temperature is above 101.5, your wound has increased redness, your wound has increased drainage and your wound pain has increased Follow-up/Referrals: Tez Valencia, DMD [Physician] - (01/28) PCP,LEONA [Primary Care Provider] - Diet: Regular Diet Texture: Easy to Chew Addtl Attending Provider Instructions: ADDITIONAL ACTIVITY RECOMMENDATIONS: * [place] teeth after every meal. It is very important to keep your mouth clean to prevent infection. SPECIAL CARE INSTRUCTIONS: * After , apply heat (hot water bottle or heating pad) for the next two days, as often as possible. * Tomorrow start rinsing your mouth with 1/2 teaspoon salt in 8 ounces warm water. This rinse should be used every 4-6 hours. * You may experience slight nausea. To prevent this, never take your medication on an empty stomach. If nauseated, take small sips of tj gene until you feel better; then you may start on applesauce and toast. * Some swelling is common. It should gradually decrease within 4-5 days. * A certain amount of bleeding is to be expected. It is often possible to control mild oozing by placing folded gauze over the area and biting down for 30 minutes. If you are unable to control excessive bleeding, call Dr Valencia [phone] * You may experience some discomfort for a few days. If pain or swelling increases, call Dr Valencia [phone] Pending Studies at Discharge: Yes Studies:: Results of Culture Stand-Alone Forms: My [facility], Opioid Pain Management, Smoking Cessation Medications and DC Order Prescriptions: New amoxicillin-pot clavulanate 875-125 mg tablet 1 tab PO Q12H Qty: 20 RF: 0 hydrocodone-acetaminophen 5-325 mg tablet 1 tab PO Q6H PRN (Reason: pain) Qty: 14 RF: 0 chlorhexidine gluconate [Peridex] 0.12 % mouthwash 15 ml BUCCAL BID Qty: 473 RF: 0 Continued multivitamin Tablet 1 tab PO DAILY RF: 0 Discharge Orders: Discharge Order (Routine); Ordered 01/17/20 Ordered By: Tyrell Fabian/Other Patient Handouts: Dental Abscess, [place] Teeth Impacted, [place] Teeth Removal, [place] Teeth Recovery Admission Data Admit Date/Time: 01/15/20 10:03 Attending Provider: Tyrell Bryan Admit Provider: Tyrell Bryan Primary Care Provider: PCP,NO Other Providers: Tyrell Bryan ; Tez Valencia Coding Level of Care Code D/C Day Management >30 mins Diagnoses [place]'s angina K12.2 Dental infection K04.7 DVT prophylaxis Z29.9
== END 2020-01-17 11:51 | disposition home or self-care (01) | DRG 158 ==
LOC: ED 06:09 → 2E 10:03 → 2N 01-16 10:16

== ENCOUNTER 2021-02-14 05:26 | Inpatient (IN) ==
--- NOTE | 2021-01-23 11:58 | History and Physical Report ---
DATE OF ADMISSION: 02/14/2021 CHIEF COMPLAINT: Macrosomia, previous , term . HISTORY OF PRESENT ILLNESS: The patient is a 31-year-old 4, para 2. She had 1 spontaneous AB at 14 weeks' gestation. She has had no problems. She is well-dated with early ultrasound. Due date is 02/20/2021. Her obstetrical history is as follows: In 2014, she had a boy, 9 pounds 5 ounces, 40 weeks. She had a 36-hour labor, arrest of labor secondary to cephalopelvic disproportion. Second delivery in 2017, a girl, 8 pounds 12 ounces. She came in in labor and basically she had no progression, so she had a repeat section with a diagnosis of cephalopelvic disproportion and macrosomia. Presently is being scheduled for a repeat at 39 weeks gestation, suspected macrosomia with a history of cephalopelvic disproportion. ALLERGIES: She has no known drug allergies. PAST SURGICAL HISTORY: She has had a x2. She has had wisdom teeth removed. She had a D and C. PAST MEDICAL HISTORY: No history of rheumatic fever, heart disease, heart murmur, diabetes, or tuberculosis. SOCIAL HISTORY: No smoking, no alcohol intake. Works at home. FAMILY HISTORY: She has 2 children in good health. Mom at 60, in good health. Dad at 60, in good health. Three brothers and five sisters, all in good health. REVIEW OF SYSTEMS: HEAD: No symptoms or frequent or severe headaches. EYES: No symptoms of blurred vision or double vision. EARS: No symptoms of frequent ear infections or difficulty hearing. NOSE: No symptoms of frequent nosebleeds or difficulty breathing through her nose. PHYSICAL EXAMINATION: GENERAL: A well-developed, well-nourished 31-year-old female, alert, oriented x3 and cooperative, in no acute distress, appeared her stated age. EYES: Conjunctivae are pink. Sclerae white. No evidence of jaundice. EARS: Normal light reflex bilaterally. NOSE: Normal mucosa. Septum is midline. There were no polyps. THROAT: No erythema or evidence of infection. Teeth are in good state of repair. HEAD: Normocephalic. Normal distribution of hair. NECK: Supple. Trachea midline. Thyroid is not enlarged. There is no adenopathy appreciated. Both carotids are of good intensity. CHEST: Clear to auscultation and percussion. No wheezes, rales or rhonchi appreciated. HEART: Regular rhythm. S1, S2 are normal. BREAST EXAM: Normal. ABDOMEN: Term-size fetus, estimated weight over 8 pounds. Well-healed Pfannenstiel scar. PELVIC: Cervix was closed, vertex presentation. MUSCULOSKELETAL: Revealed no calf tenderness. IMPRESSION IN THIS CASE: Status post section x2, status post removal of wisdom teeth, status post dilation and curettage, intrauterine , previous section, cephalopelvic disproportion.
--- NOTE | 2021-02-02 15:29 | PAT Medication Instructions ---
Medication Instructions Date of Service February 02, 2021 Home Medications multivitamin 1 tab PO DAILY calcium 500 mg PO DAILY DO NOT take the morning of surgery multivitamin 1 tab PO DAILY calcium 500 mg PO DAILY OTHERWISE NOTHING TO EAT OR DRINK AFTER MIDNIGHT Other Notes If you have any questions please call us at [phone] or [phone] or [phone] or [phone]
--- NOTE | 2021-02-07 10:44 | Anesthesiology Consultation ---
Date of Service February 07, 2021 Assessment & Plan (1) Encounter for pre-operative examination: Chart Review Chart Review: Acceptable Risk for Surgery (pending preop Covid testing results ) and Patient seen in Pre Admission Testing Blood bank informed of positive antibodies With most reason (2017)- felt like she was going to pass out- was after spinal was placed - unsure if it was before or after baby was out. Only lasted one minute and then resolved. No significant issues noted per previous records (reviewed). Per [facility] appt on 02/07/21, patient denies any recent travel. No known Covid positive contacts or Covid related symptoms. No known Covid infection in the past 90 days. Preop Covid testing doen at [facility] appt on 02/07/21= results pending. Educated on importance of self quarantining, social distancing and wearing mask in public both for the patient and household contacts. Drainage Submandibular infection, removal #17, 32 remnants 01/16/20= Done under GA with Grade 1 view with Glidescope #3. Teaching & Discussion Pre-Anesthesia Teaching/Discussion Notes: Instructed NPO after midnight before surgery,except medications with 15 cc of water. Medication instructions provided according to the [facility] guidelines. History Surgery Operation Date: 02/14/21 07:30 Proposed Procedures p Section in LD - Alcides Hernandez MD Height/Weight Height: 5 ft 3 in Weight: 92.2 kg Allergies Allergy/AdvReac Type Severity Reaction Status Date / Time latex Allergy Mild irritation Verified 01/20/21 11:47 on contact Medications Home Medications Medication Instructions Recorded Confirmed Last Taken multivitamin 1 tab PO DAILY 01/15/20 01/20/21 Unknown calcium 500 mg PO DAILY 01/20/21 01/20/21 Unknown Past Medical History Medical History History of anesthesia reaction DURING 2ND C- SECTION, FELT LIKE WAS GOING TO PASS OUT, STARTED TO BLACK OUT> THEN RESOLVED WITHIN A FEW MINS [place]'s angina AFTER 1ST ATTEMPT TO REMOVE WISDOM TEETH > WAS ADMITTED TO [facility] > JANUARY 2020 > WISDOM TEETH REMOVED AFTER 4 DAYS ABX TREATMENT - NO ISSUES SINCE THAT TIME Miscarriage 2018 Exercise / Class Metabolic Activity II 4-5 Yardwork/Stairs/Walk up hill (one flight of stairs - no chest pain or SOB ) Past Family History Family History Sister Diabetes Past Surgical History Surgical History Previous section x2 [place] teeth extracted Past Anesthesia History No Hx of Anesthesia Complications (with exception to near syncope with 2019 C- section) and No Family Hx of Anesthesia Complications History of PONV No Hx of Motion Sickness and History of PONV (one episode with 2017 ) Social History Smoking Status: Never smoker Do You Dip or Chew Tobacco: No Hx Alcohol Use: No Hx Substance Use: No substance use type: does not use Review of Systems Reflux only secondary to . S/p blood transfusion after miscarriage Patient denies chest pain, shortness of breath, dyspnea on exertion, cough, wheezing, palpitations. No hx of seizures, stroke, ME, apnea/snoring. No hx of blood clots. Physical Exam Vital Signs VITALS BP 114/75 P 90 TEMP 98.1 SP02 98% RESP 16 Constitutional no acute distress ENMT Mouth: no TMJ clicking Thyromental Distance: > or= 3.5 Finger Breadths (3.5) Mallampati Class: II Missing molars/side teeth Neck neck extension not limited Respiratory normal respiratory effort; no respiratory distress Auscultation: lungs clear to auscultation bilaterally; no wheezes Cardiovascular Rate/Rhythm: regular rate and regular rhythm Heart Sounds: no murmur Vessels: no carotid bruit Musculoskeletal Spine: no pain with cervical ROM Extremities: extremities normal to inspection Psychiatric Orientation: alert Testing Laboratory Results 02/07/21 11:06 02/07/21 11:01 PT 9.8 Seconds (9.0-12.0) 02/07/21 11:06 INR 1.0 (0.9-1.1) 02/07/21 11:06 APTT 23.3 Seconds (21.0-31.0) 02/07/21 11:06 Blood Type A Negative 02/07/21 11:06 Antibody Screen POSITIVE A 02/07/21 11:06
[2021-02-07 12:25] LABS: Basophils # (auto) 0.01 K/uL (0-0.2); Basophils % (auto) 0.2 %; Eosinophils # (auto) 0.05 K/uL (0-0.5); Eosinophils % (auto) 0.8 %; Hematocrit (blood only) 31.8 % (37-47); Hemoglobin 10.8 g/dL (12.0-16.0); Immature Granulocytes # (auto) 0.05 K/uL (0.00-0.02); Immature Granulocytes % (auto) 0.8 %; Lymphocytes # (auto) 1.06 K/uL (1.2-3.4); Lymphocytes % (auto) 17.4 %; Mean Corpuscular Hemoglobin 28.3 pg (25-34); Mean Corpuscular Volume 83.2 fL (80-100); Mean Platelet Volume 11.6 fL (7.4-10.4); Monocytes # (auto) 0.66 K/uL (0.11-0.59); Monocytes % (auto) 10.8 %; Neutrophils # (auto) 4.26 K/uL (1.4-6.5); Platelet Count 135 K/uL (130-400); RDW Coefficient of Variation 13.8 % (11.5-14.5); Red Blood Count 3.82 M/uL (4.2-5.4); White Blood Count 6.09 K/uL (4.8-10.8)
[2021-02-07 12:48] LABS: Partial Thromboplastin Ratio 0.9; Partial Thromboplastin Time 23.3 Seconds (21.0-31.0); Prothrombin Time 9.8 Seconds (9.0-12.0)
[2021-02-07 15:32] LABS: BUN Creatinine Ratio 14.4 (10-20); Calcium 8.7 mg/dl (8.5-10.1); Creatinine Clr Calc Pharmacy 162.8 ml/min; Est GFR (African American) 144.6; Est GFR (Non-African American) 124.8; Potassium 3.9 mmol/L (3.5-5.1)
[2021-02-14] MEDS ORDERED: SODIUM CHLORIDE 0.9% 250 ML IV PRN ×2 (05:29→13:27)
[2021-02-14 05:57] LABS: Basophils # (auto) 0.01 K/uL (0-0.2); Basophils % (auto) 0.2 %; Eosinophils # (auto) 0.06 K/uL (0-0.5); Hematocrit (blood only) 30.8 % (37-47); Hemoglobin 10.6 g/dL (12.0-16.0); Immature Granulocytes # (auto) 0.03 K/uL (0.00-0.02); Immature Granulocytes % (auto) 0.5 %; Lymphocytes # (auto) 1.18 K/uL (1.2-3.4); Lymphocytes % (auto) 18.8 %; Mean Corpuscular Hemoglobin 28.3 pg (25-34); Mean Corpuscular Hgb Conc 34.4 g/dL (32-36); Mean Corpuscular Volume 82.1 fL (80-100); Mean Platelet Volume 10.8 fL (7.4-10.4); Monocytes # (auto) 0.48 K/uL (0.11-0.59); Monocytes % (auto) 7.6 %; Neutrophils # (auto) 4.53 K/uL (1.4-6.5); Neutrophils % (auto) 71.9 %; Platelet Count 117 K/uL (130-400); RDW Standard Deviation 42.3 fL (36.4-46.3); Red Blood Count 3.75 M/uL (4.2-5.4); White Blood Count 6.29 K/uL (4.8-10.8)
[2021-02-14] MEDS ORDERED: LACTATED RINGER'S 1,000 ML IV SCH ×2 (06:00→09:15)
[2021-02-14] MEDS ORDERED: CITRIC ACID/SODIUM CITRATE 15 ML UDC PO SCH (06:00)
[2021-02-14] MEDS ORDERED: cefOXitin 2,000 MG in DEXTROSE 5% 50 ML IV SCH (06:00)
[2021-02-14 06:07] LABS: Partial Thromboplastin Ratio 0.9; Partial Thromboplastin Time 23.5 Seconds (21.0-31.0); Prothrombin Time 10.1 Seconds (9.0-12.0)
[2021-02-14 06:15] LABS: BUN Creatinine Ratio 15.2 (10-20); Calcium 8.2 mg/dl (8.5-10.1); Creatinine Clr Calc Pharmacy 148.3 ml/min; Est GFR (African American) 140.4; Est GFR (Non-African American) 121.1; Potassium 3.8 mmol/L (3.5-5.1)
--- NOTE | 2021-02-14 06:58 | History & Physical Bridge Note ---
Date of Service February 14, 2021 History & Physical Bridge Note I have examined the patient, reviewed the History & Physical and in the interval since the performance of the History & Physical I have noted the following changes of clinical significance: no changes noted
[2021-02-14] MEDS ORDERED: OXYTOCIN 10 UNITS/ML VIAL ONE ×2 (07:25→08:49)
[2021-02-14] MEDS ORDERED: fentaNYL citrate 100 MCG/2 ML VIAL ONE (07:27)
[2021-02-14] MEDS ORDERED: MoRPHine SULFATE PF 1 MG/ML 10 ML AMP/VIAL ONE (07:28)
[2021-02-14] MEDS ORDERED: PHENYLEPHRINE 100MCG/ML 5ML SYR ONE (08:16)
[2021-02-14] MEDS ORDERED: ePHEDrine sulfate 50 MG/ML SYR ONE (08:16)
[2021-02-14] MEDS ORDERED: OXYTOCIN 10 UNITS/ML VIAL IM ONE (08:35)
[2021-02-14 08:54] LABS: Hepatitis B Surf Ag Rflx Conf Neg (Neg); Rubella IgG Antibody Immune (Immune)
[2021-02-14] MEDS ORDERED: HYDROCORTISONE ACETATE 25 MG SUPP PR PRN (09:02)
[2021-02-14] MEDS ORDERED: MAGNESIUM HYDROXIDE SUSP 30 ML UDC PO PRN (09:02)
[2021-02-14] MEDS ORDERED: SUPERCREAM 0.870% 15 GM JAR EXT PRN (09:02)
[2021-02-14] MEDS ORDERED: DIPHTHERIA/TETANUS/PERTUSSIS 0.5 ML SYR/VIAL IM ONE (09:02)
[2021-02-14] MEDS ORDERED: SENNA 8.6 MG TAB PO PRN (09:02)
[2021-02-14] MEDS ORDERED: IBUPROFEN 600 MG TAB PO PRN (09:02)
[2021-02-14] MEDS ORDERED: BENZOCAINE 20% AER SPR 82.5 GM CAN EXT PRN (09:02)
--- NOTE | 2021-02-14 09:02 | Post Operative Brief Note ---
Immediate Post Op Note v1 Date of Surgery February 14, 2021 Pre & Post Diagnosis Operation Date: 02/14/21 07:30 Pre-Op Diagnosis: Term Previous Post-Op Diagnosis: Term Previous ; desire for repeat I identified the patient and participated in the time-out.: Yes Procedure Operation Date: 02/14/21 07:30 Actual Procedures p Section in LD; delivery of live male [id number] - Alcides Hernandez MD Surgeon Alcides Hernandez MD System Support Technician Dr Kirkpatrick Estimated Blood Loss 600 Findings Consistent with Post-Op Diagnosis Specimens placenta scare Drains Siegel Catheter (inserted after spinal with return of light yellow urine; latex free siegel) Anesthesia Type MAC Spinal Regional Complications none Disposition Accompanied Patient To Recovery: No Disposition: Recovery Room
[2021-02-14] MEDS ORDERED: NALOXONE HCL 0.4 MG/1 ML VIAL/CARP IV PRN (09:15)
[2021-02-14] MEDS ORDERED: SODIUM CHLORIDE 0.9% 1000ML 1,000 ML IV SCH (09:15)
[2021-02-14] MEDS ORDERED: NO NARCOTICS OR SEDATIVES SCH (09:15)
[2021-02-14] MEDS ORDERED: KETOROLAC 30 MG/ML VIAL IV PRN (09:15)
[2021-02-14] MEDS ORDERED: PROMETHAZINE HCL 25 MG in SODIUM CHLORIDE 0.9% 50 ML IV PRN (09:15)
[2021-02-14] MEDS ORDERED: diphenhydrAMINE 50 MG/ML VIAL IV PRN (09:15)
[2021-02-14] MEDS ORDERED: NALOXONE HCL 0.08 MG in SYRINGE 1.8 ML IV PRN (09:15)
[2021-02-14] MEDS ORDERED: NALOXONE HCL 1 MG in SODIUM CHLORIDE 0.9% 1000ML 1,000 ML IV PRN (09:15)
[2021-02-14] MEDS ORDERED: ONDANSETRON INJ 2 MG/ML 2 ML VIAL IV PRN (09:15)
[2021-02-14] MEDS ORDERED: MoRPHine SULFATE PF 1 MG/ML 10 ML AMP/VIAL INT SPINAL ONE (09:15)
[2021-02-14] MEDS ORDERED: LACTATED RINGER'S 500 ML IV PRN (09:15)
[2021-02-14] MEDS ORDERED: ePHEDrine sulfate 50 MG/ML AMP IV PRN (09:15)
--- NOTE | 2021-02-14 11:09 | Anesthesiology Progress Note ---
Date of Service February 14, 2021 Anesthesia Post Procedure Vital Signs Vital Signs: Temp Pulse Resp BP Pulse Ox 02/14/21 11:05 84 98 02/14/21 11:00 88 98 02/14/21 10:59 76 116/70 02/14/21 10:55 75 98 02/14/21 10:50 77 98 02/14/21 10:49 68 118/67 02/14/21 10:45 72 98 02/14/21 10:40 85 98 02/14/21 10:39 83 16 110/55 L 02/14/21 10:35 79 98 02/14/21 10:30 77 99 02/14/21 10:29 36.6 C 80 20 122/69 02/14/21 10:25 84 99 02/14/21 10:20 84 99 02/14/21 10:19 84 124/69 02/14/21 10:15 84 99 02/14/21 10:10 77 99 02/14/21 10:09 36.6 C 78 20 110/78 02/14/21 10:05 80 100 02/14/21 10:00 87 99 02/14/21 09:59 83 20 113/83 02/14/21 09:55 87 99 02/14/21 09:50 80 99 02/14/21 09:49 77 16 118/75 02/14/21 09:45 76 99 02/14/21 09:40 72 20 99 02/14/21 09:35 78 99 02/14/21 09:30 79 99 02/14/21 09:28 82 127/58 L 02/14/21 09:25 80 99 02/14/21 09:20 87 100 02/14/21 09:15 78 98 02/14/21 09:10 36.6 C 81 20 106/61 99 02/14/21 07:11 36.7 C 20 02/14/21 07:00 98 H 136/71 02/14/21 05:40 37.1 C 18 02/14/21 05:39 109 H 137/90 Pain Intensity Abdomen: Pain Intensity: 2 Transfer of Care Handoff Completed per policy Notes Mental Status: alert / awake / arousable Patient Amnestic to Procedure: Yes Nausea / Vomiting: adequately controlled Pain: adequately controlled Airway Patency, RR, SpO2: stable & adequate BP & HR: stable & adequate Hydration State: stable & adequate Neuraxial Anesthesia: was administered and sensory block is resolving Anesthetic Complications: no major complications apparent
[2021-02-14] MEDS: OXYTOCIN 20 UNITS in D5W AND LACTATED RINGERS 1,000 ML IV SCH ×2 (11:35→19:28)
--- NOTE | 2021-02-14 13:44 | Operative Report (OR) ---
DATE OF OPERATION: 02/14/2021 PROCEDURE: Repeat low segment section. INDICATIONS FOR SURGERY: Two previous sections, 39 weeks gestation, cephalopelvic disproportion. PREOPERATIVE DIAGNOSES: Two previous sections, cephalopelvic disproportion. POSTOPERATIVE DIAGNOSES: Two previous sections, cephalopelvic disproportion. Delivered, male . SURGEON: Pamela Hernandez MD. TAPE CALENDER: Hussein Kirkpatrick MD. ESTIMATED BLOOD LOSS: 600 mL. ANESTHESIA: Spinal. OPERATIVE FINDINGS AND PROCEDURE: The patient was brought to the OR table, correctly identified by armband and conversation. Spinal anesthesia was administered. Dominguez catheter was inserted aseptically in the bladder. Compression stockings were applied. Lower abdomen was painted with an alcohol based sterilizing solution, draped in the usual sterile fashion. Level of the anesthesia was tested and found to be adequate. We started out by excising the previous Pfannenstiel scar, then using cauterization to control the bleeding, we cut down to the fascia, then incised the fascia laterally and then dissected off the recti muscles up towards the umbilicus and down to the pubic symphysis. We then the recti muscles in the midline, entered the peritoneum and then exposed the uterine segment. We used a retractor to expose uterine segment. I then cut above the vesicouterine fold, pushed the bladder down, scored the lower uterine segment, then entered it bluntly with the scissors. Clear amnionic fluid was seen at this time, then grasped the infant's head and with fundal pressure, delivered a live male infant. breathed and cried spontaneously, was attended by the relations specialist who was scrubbed and present at the time of delivery. Cord blood was taken. Placenta was removed manually. Uterine cavity was cleansed with a clean sponge. 10 units of Pitocin was injected into the myometrium. Then we did a layered closure of the myometrial defect. The deep layer was approximated with a continuous interlocking suture of heavy chromic and then a layer over this approximated the fascial layers and this was done with interlocking heavy duty Vicryl. Following this, we used about 4 [id number] sutures of heavy duty Vicryl to complete the approximation and to create good hemostasis. We had a nice good anatomical approximation, it was nice and thick. I then restored the integrity of the vesicouterine fold with a 3-0 chromic gut suture. We cleansed the pelvis of all blood clots and debris. Reinserted the uterus, tubes, and ovaries into the abdomen, checked, everything was hemostatic. We then did a careful anatomical approximation of the anterior abdominal wall. Peritoneum was closed with a running chromic gut suture. Recti muscles were approximated with interrupted nwwgam-ci-[id number] suture of chromic catgut. Fascia was closed with continuous interlocking suture of Vicryl on each side, tied in the midline. Subcutaneous was approximated with a continuous plain and skin edge approximated with staple clips. I attest to the content of the Intraoperative Record and any orders documented therein. Any exception s are noted below.
[2021-02-14] MEDS: SIMETHICONE 80 MG CHEW PO SCH ×3 (14:13→20:21)
[2021-02-14] MEDS: DOCUSATE SODIUM 100 MG CAP PO SCH (20:21)
[2021-02-15] MEDS ORDERED: ONDANSETRON INJ 2 MG/ML 2 ML VIAL IV PRN (03:15)
[2021-02-15] MEDS ORDERED: MEPERIDINE HCL 50 MG/ML CARP IV PRN (03:15)
[2021-02-15] MEDS ORDERED: oxyCODONE/ACETAMINOPHEN 5mg/325mg TAB PO PRN (03:15)
[2021-02-15] MEDS ORDERED: diphenhydrAMINE Capsule 25 MG CAP PO PRN (03:15)
[2021-02-15] MEDS ORDERED: ZOLPIDEM TARTRATE 5 MG TAB PO PRN (03:15)
[2021-02-15] MEDS ORDERED: KETOROLAC 30 MG/ML VIAL IV PRN (03:15)
[2021-02-15] MEDS ORDERED: diphenhydrAMINE 50 MG/ML VIAL IV PRN (03:15)
[2021-02-15] MEDS ORDERED: DC INTRASPINAL MORPHINE ONE (03:15)
[2021-02-15] MEDS ORDERED: PROMETHAZINE HCL 25 MG in SODIUM CHLORIDE 0.9% 50 ML IV PRN (03:15)
[2021-02-15 06:41] LABS: Eosinophils # (auto) 0.04 K/uL (0-0.5); Eosinophils % (auto) 0.5 %; Hematocrit (blood only) 29.5 % (37-47); Hemoglobin 10.1 g/dL (12.0-16.0); Immature Granulocytes # (auto) 0.02 K/uL (0.00-0.02); Immature Granulocytes % (auto) 0.2 %; Lymphocytes # (auto) 0.77 K/uL (1.2-3.4); Lymphocytes % (auto) 9.4 %; Mean Corpuscular Hemoglobin 28.4 pg (25-34); Mean Corpuscular Hgb Conc 34.2 g/dL (32-36); Mean Corpuscular Volume 82.9 fL (80-100); Mean Platelet Volume 11.5 fL (7.4-10.4); Monocytes % (auto) 9.8 %; Neutrophils # (auto) 6.57 K/uL (1.4-6.5); Neutrophils % (auto) 80.1 %; Platelet Count 113 K/uL (130-400); RDW Standard Deviation 42.7 fL (36.4-46.3); Red Blood Count 3.56 M/uL (4.2-5.4)
[2021-02-15] MEDS ORDERED: FERROUS SULFATE 325 MG TAB PO SCH (08:00)
[2021-02-15] MEDS ORDERED: PRENATAL VITAMIN 1 TAB PO SCH (08:00)
--- NOTE | 2021-02-15 08:35 | Anesthesiology Progress Note ---
Date of Service February 15, 2021 Anesthesia Post Procedure Vital Signs Vital Signs: Temp Pulse Pulse Resp BP BP Pulse Ox 02/15/21 04:00 37.0 C 70 18 110/70 02/15/21 02:00 18 98 02/15/21 01:00 18 98 02/15/21 00:00 36.9 C 74 18 105/69 98 02/14/21 22:40 18 96 02/14/21 21:37 18 97 02/14/21 20:21 18 97 02/14/21 19:15 37.2 C 95 H 18 113/74 100 02/14/21 18:00 18 100 02/14/21 17:12 18 99 02/14/21 16:09 36.3 C L 75 18 102/63 98 02/14/21 15:29 18 99 02/14/21 14:15 18 99 02/14/21 13:00 36.7 C 79 16 115/72 98 02/14/21 12:15 36.9 C 82 18 119/73 97 02/14/21 11:45 36.6 C 20 02/14/21 11:30 82 98 02/14/21 11:29 87 93 02/14/21 11:25 83 99 02/14/21 11:20 79 98 02/14/21 11:19 78 120/57 L 02/14/21 11:15 82 98 02/14/21 11:10 77 98 02/14/21 11:09 36.6 C 92 H 20 115/59 L 02/14/21 11:05 84 98 02/14/21 11:00 88 98 02/14/21 10:59 76 116/70 02/14/21 10:55 75 98 02/14/21 10:50 77 98 02/14/21 10:49 68 118/67 02/14/21 10:45 72 98 02/14/21 10:40 85 98 02/14/21 10:39 83 16 110/55 L 02/14/21 10:35 79 98 02/14/21 10:30 77 99 02/14/21 10:29 36.6 C 80 20 122/69 02/14/21 10:25 84 99 02/14/21 10:20 84 99 02/14/21 10:19 84 124/69 04/06/21 10:15 84 99 02/14/21 10:10 77 99 02/14/21 10:09 36.6 C 78 20 110/78 02/14/21 10:05 80 100 02/14/21 10:00 87 99 02/14/21 09:59 83 20 113/83 02/14/21 09:55 87 99 02/14/21 09:50 80 99 02/14/21 09:49 77 16 118/75 02/14/21 09:45 76 99 02/14/21 09:40 72 20 99 02/14/21 09:35 78 99 02/14/21 09:30 79 99 02/14/21 09:28 82 127/58 L 02/14/21 09:25 80 99 02/14/21 09:20 87 100 02/14/21 09:15 78 98 02/14/21 09:10 36.6 C 81 20 106/61 99 Pain Intensity Abdomen: Pain Intensity: 1 Transfer of Care Handoff Completed per policy Notes Mental Status: alert / awake / arousable Patient Amnestic to Procedure: Yes Nausea / Vomiting: adequately controlled Pain: adequately controlled Airway Patency, RR, SpO2: stable & adequate BP & HR: stable & adequate Hydration State: stable & adequate Neuraxial Anesthesia: was administered and sensory block resolved Anesthetic Complications: no major complications apparent and Pt Satisfied with anesthetic care
[2021-02-15] MEDS: DOCUSATE SODIUM 100 MG CAP PO SCH (08:49)
[2021-02-15] MEDS: SIMETHICONE 80 MG CHEW PO SCH (08:50)
--- NOTE | 2021-02-15 09:17 | Obstetrical Progress Note ---
Date of Service February 15, 2021 Assessment & Plan Admission and Anticipated Discharge Date Admission Date: February 14, 2021 Physical Exam Physical Exam: abdomen soft and non tender bandage removed incision is clean and dry no calf tenderness ambulating well vaginal bleeding scant hgb 10.1 bowel sounds are normal Results & Data ([facility]) Vital Signs (Past 12 Hours) Vital Signs Temp Pulse Resp BP Pulse Ox 02/15/21 04:00 37.0 C 70 18 110/70 02/15/21 02:00 18 98 02/15/21 01:00 18 98 02/15/21 00:00 36.9 C 74 18 105/69 98 02/14/21 22:40 18 96 02/14/21 21:37 18 97
--- NOTE | 2021-02-15 12:26 | Discharge Summary (DS) ---
Mrs. Foreman is a 4, para 2 on admission. She had 1 previous spontaneous AB and she had 2 previous sections for cephalopelvic disproportion. On the day of admission, she was given prophylactic antibiotics, taken to the OR where a repeat low segment section was performed without difficulty and an estimated blood loss of about 500 mL. Her preoperative hemoglobin was 10.6, hematocrit 30.8. Postoperatively, hemoglobin fell to 10.1, hematocrit 29.5. Postoperatively, the patient did well. She remained afebrile. On the afternoon of the first postoperative day, she requested discharge. She was ambulating well. She had normal bowel sounds. Incision was clean and dry. She was given the usual instructions and told to call the office in about a week to get the komal removed and to call if she had temperature over 100 or any heavy bleeding.
[2021-02-15] MEDS ORDERED: bisacodyL 5 MG TABEC PO SCH (20:00)
[2021-02-16] MEDS ORDERED: bisacodyL 10 MG SUPP PR PRN (09:02)
== END 2021-02-15 12:25 | disposition home or self-care (01) | DRG 788 ==
LOC: ASU 05:26 → 4S1 05:28 → 4S2 11:40

== ENCOUNTER 2024-01-08 05:25 | Inpatient (IN) ==
--- NOTE | 2024-01-02 11:46 | History & Physical Report ---
Date of Service January 02, 2024 Assessment & Plan (1) S/P repeat low transverse : Plan: Patient is undergoing a repeat section for cephalopelvic disproportion. History of Present Illness Chief Complaint: History of 3 previous sections due to cephalopelvic disproportion. Intrauterine 39 weeks gestation. Primary Care Provider: NO PCP Patient is a 33-year-old 5 para 3 with 1 spontaneous first trimester AB. She is in good general health. First was done for cephalopelvic disproportion. She had a trial of labor with the second and that failed to result in a vaginal delivery. Her last menstrual period is uncertain. She had a first trimester ultrasound done on 06/11/2023. At that time showed an intrauterine of 8 weeks 6 days. Giving her due date of 01/14/2024. Presently being scheduled for repeat low segment section. Allergies Allergy/AdvReac Type Severity Reaction Status Date / Time latex Allergy Mild irritation Verified 12/18/23 15:25 on contact Home Medications Medication Instructions Recorded Confirmed Type multivitamin 1 tab PO DAILY 01/15/20 10/29/23 History calcium 500 mg tablet 500 mg PO DAILY 01/20/21 10/29/23 History Past Med/Surg History Medical History History of anesthesia reaction DURING 2ND C- SECTION, FELT LIKE WAS GOING TO PASS OUT, STARTED TO BLACK OUT> THEN RESOLVED WITHIN A FEW MINS [place]'s angina AFTER 1ST ATTEMPT TO REMOVE WISDOM TEETH > WAS ADMITTED TO [facility] > JANUARY 2020 > WISDOM TEETH REMOVED AFTER 4 DAYS ABX TREATMENT - NO ISSUES SINCE THAT TIME Miscarriage 2018 Surgical History Previous section x2 [place] teeth extracted Family History Sister Diabetes Social History (System 12/18/23 @ 15:25 by Nevin Ward) Smoking Status: Never smoker Second Hand Exposure: No; Do You Dip or Chew Tobacco: No; Hx Alcohol Use: No Hx Substance Use: No Preferred Language: Romanian Communication Ability: Effective Power System Engineer Required: No Beliefs That Will Affect Care: Gnosticist Gnosticist Beliefs: Jamie marital status: Current Living Situation: Spouse and Family Feels Safe at Home: Yes Assistive Devices: None Physical Exam Physical Exam: Patient is a well-developed well-nourished 33-year-old white female alert oriented x 3 in no acute distress. Ears had normal light reflex bilaterally. Trachea was midline. There is no cervical adenopathy. Lungs were clear to auscultation and percussion. Heart had a regular rhythm S2 and S1 were normal. Breast examination was normal. Abdomen revealed a term size abdomen. There was a well-healed Pfannenstiel scar. There was no costal vertebral angle tenderness. Pelvic exam revealed a vertex presentation floating. Cervix was posterior and closed. There was no calf tenderness.
--- NOTE | 2024-01-03 11:02 | Anesthesiology Consultation ---
Date of Service January 03, 2024 Assessment & Plan (1) Encounter for pre-operative examination: - 02/14/21: SAB L4-L5 1 attempt. - Per wax blender on 01/03/24: No known infectious disease contacts, current infectious disease symptoms in past 10 days or COVID positive test result in the past 30 days. Chart Review Chart Review: entry level finance initiated History Surgery Operation Date: 01/08/24 07:30 Proposed Procedures p Repeat Section - Alcides Hernandez MD Height/Weight Height: 5 ft 3 in Weight: 92.986 kg Allergies Allergy/AdvReac Type Severity Reaction Status Date / Time latex Allergy Mild irritation Verified 01/03/24 10:32 on contact Medications Home Medications Medication Instructions Recorded Confirmed Last Taken multivitamin 1 tab PO DAILY 01/15/20 01/03/24 Unknown calcium 500 mg tablet 500 mg PO DAILY 01/20/21 01/03/24 Unknown ferrous sulfate 40 mg PO QAM 01/03/24 01/03/24 Unknown omega-3 fatty acids 1 cap PO DAILY 01/03/24 01/03/24 Unknown Past Medical History Medical History (Updated 01/03/24 @ 10:58 by Kait Tucker PA-C) History of anesthesia reaction (prior to 2020) during second , "felt like she was going to pass out, started to black out">"resolved within a few minutes Low iron recently put on iron supplement Orlando's angina after 1st attempt to remove wisdom teeth>admitted to [facility] 01/2020>wisdom teeth removed after 4 days of abx tx. Miscarriage 2018 Past Family History Family History Sister Diabetes Past Surgical History Surgical History Previous section x3 [place] teeth extracted Social History Smoking Status: Never smoker Do You Dip or Chew Tobacco: No Hx Alcohol Use: No Hx Substance Use: No substance use type: does not use Lab Results Anesthesia Preop Results Results Anesthesia Widget: WBC 5.48 K/ul (4.8-10.8) 12/26/23 Hgb 10.2 g/dl (12.0-16.0) L 12/26/23 Hct 30.4 % (37.0-47.0) L 12/26/23 Plt 123 K/uL (130-400) L 12/26/23 Na 135 mmol/L (136-145) L 12/26/23 K 3.7 mmol/L (3.5-5.1) 12/26/23 Cl 105 mmol/L (98-107) 12/26/23 CO2 24 mmol/L (21-32) 12/26/23 BUN 7 mg/dl (6-23) 12/26/23 Creat 0.51 mg/dl (0.6-1.2) L 12/26/23 Glucose Level 77 mg/dl (70-99(Fasting)) 12/26/23 PT 10.6 Seconds (9.0-12.0) 12/26/23 PTT 25 Seconds (21-31) 12/26/23 INR 1.0 (0.9-1.1) 12/26/23 Blood Type A Negative 12/26/23 Antibody Screen POSITIVE A 12/26/23 Testing Laboratory Results Positive antibody: per Valeriy with blood bank, nothing additional is needed.
[2024-01-08] MEDS ORDERED: SODIUM CHLORIDE 0.9% 250 ML IV PRN (05:32)
[2024-01-08] MEDS: LACTATED RINGER'S 1,000 ML IV SCH (05:45)
[2024-01-08 06:12] LABS: Basophils # (auto) 0.02 K/uL (0.00-0.20); Basophils % (auto) 0.4 %; Eosinophils # (auto) 0.06 K/uL (0.00-0.50); Eosinophils % (auto) 1.1 %; Hematocrit (blood only) 30.2 % (37.0-47.0); Immature Granulocytes # (auto) 0.05 K/uL (0.01-0.20); Immature Granulocytes % (auto) 0.9 %; Lymphocytes # (auto) 1.15 K/uL (1.20-3.40); Lymphocytes % (auto) 21.1 %; Mean Corpuscular Hemoglobin 26.2 pg (25.0-34.0); Mean Corpuscular Hgb Conc 33.1 g/dL (32.0-36.0); Mean Corpuscular Volume 79.1 fL (80.0-100.0); Mean Platelet Volume 12.2 fL (9.4-12.4); Monocytes # (auto) 0.46 K/uL (0.11-0.59); Monocytes % (auto) 8.5 %; Platelet Count 130 K/uL (130-400); RDW Coefficient of Variation 14.7 % (11.5-14.5); RDW Standard Deviation 42.1 fL (36.4-46.3); Red Blood Count 3.82 M/uL (4.20-5.40); White Blood Count 5.44 K/ul (4.8-10.8)
[2024-01-08 06:26] LABS: Anion Gap 9 (3-11); Blood Urea Nitrogen 6 mg/dl (6-23); Calcium 8.3 mg/dl (8.6-10.3); Carbon Dioxide 21 mmol/L (21-32); Chloride 106 mmol/L (98-107); Creatinine Clr Calc Pharmacy 207.5 ml/min; Est GFR (African American) > 150.0 ml/min; Est GFR (Non-African American) 133.9 ml/min; Glucose Fasting 86 mg/dl (70-99); Potassium 3.7 mmol/L (3.5-5.1); Sodium 136 mmol/L (136-145)
[2024-01-08 06:36] LABS: Partial Thromboplastin Ratio 0.9; Partial Thromboplastin Time 25 Seconds (21-31); Prothrombin Time 10.5 Seconds (9.0-12.0)
[2024-01-08] MEDS ORDERED: fentaNYL citrate PF 100 MCG/2 ML VIAL ONE (06:52)
[2024-01-08] MEDS ORDERED: PHENYLEPHRINE 100MCG/ML 10ML SYR IV ONE (06:52)
[2024-01-08] MEDS ORDERED: ONDANSETRON INJ 2 MG/ML 2 ML VIAL ONE (06:52)
[2024-01-08] MEDS ORDERED: MoRPHine SULFATE PF 1 MG/ML 10 ML AMP/VIAL ONE (06:53)
[2024-01-08] MEDS: CITRIC ACID/SODIUM CITRATE 15 ML UDC PO SCH (07:28)
[2024-01-08] MEDS: cefOXitin 2,000 MG in DEXTROSE 5 % MINI-B 50 ML IV SCH (07:35)
[2024-01-08] MEDS ORDERED: HYDROmorphone INJ 0.5 MG/0.5 ML SYR IV PRN (07:57)
[2024-01-08] MEDS ORDERED: diphenhydrAMINE 50 MG/ML VIAL IV PRN (07:57)
[2024-01-08] MEDS ORDERED: NALOXONE HCL 0.08 MG in SYRINGE 1.8 ML IV PRN (07:57)
[2024-01-08] MEDS ORDERED: ONDANSETRON INJ 2 MG/ML 2 ML VIAL IV PRN ×2 (07:57→09:32)
[2024-01-08] MEDS ORDERED: NALOXONE HCL 0.4 MG/1 ML VIAL/CARP IV PRN (07:57)
[2024-01-08] MEDS ORDERED: LACTATED RINGER'S 500 ML IV PRN (07:57)
[2024-01-08] MEDS ORDERED: ePHEDrine sulfate 50 MG/ML AMP IV PRN (07:57)
[2024-01-08] MEDS ORDERED: NALBUPHINE HCL 5 MG in SYRINGE 0 ML IV PRN (07:57)
[2024-01-08] MEDS ORDERED: NALOXONE HCL 1 MG in SODIUM CHLORIDE 0.9% 1,000 ML IV PRN (07:57)
[2024-01-08] MEDS ORDERED: PROMETHAZINE HCL 6.25 MG in SODIUM CHLORIDE 0.9% 50 ML IV PRN (07:57)
[2024-01-08] MEDS ORDERED: SODIUM CHLORIDE 0.9% 1,000 ML IV SCH (08:00)
[2024-01-08] MEDS ORDERED: NO NARCOTICS OR SEDATIVES SCH (08:00)
[2024-01-08] MEDS ORDERED: DC INTRASPINAL MORPHINE SCH (08:00)
[2024-01-08] MEDS ORDERED: ePHEDrine sulfate 50 MG/5 ML SYR ONE (08:39)
[2024-01-08] MEDS: OXYTOCIN 10 UNITS/ML 10ML VIAL IM ONE (09:10)
[2024-01-08] MEDS ORDERED: KETOROLAC 30 MG/ML VIAL ONE (09:21)
[2024-01-08] MEDS ORDERED: MIDAZOLAM HCL 1 MG/ML 2ML VIAL ONE (09:22)
[2024-01-08] MEDS ORDERED: OXYTOCIN 10 UNITS/ML VIAL ONE (09:24)
[2024-01-08] MEDS ORDERED: diphenhydrAMINE 50 MG/ML VIAL ONE ×2 (09:26→09:27)
[2024-01-08] MEDS ORDERED: ZOLPIDEM TARTRATE 5 MG TAB PO PRN (09:32)
[2024-01-08] MEDS ORDERED: SENNA 8.6 MG TAB PO PRN (09:32)
[2024-01-08] MEDS ORDERED: HYDROCORTISONE ACETATE 25 MG SUPP PR PRN (09:32)
[2024-01-08] MEDS ORDERED: MEPERIDINE HCL 50 MG/ML CARP IV PRN (09:32)
[2024-01-08] MEDS ORDERED: MAGNESIUM HYDROXIDE SUSP 30 ML UDC PO PRN (09:32)
[2024-01-08] MEDS ORDERED: BENZOCAINE 20% SPRY 85 APPLN/85 GM CAN EXT PRN (09:32)
--- NOTE | 2024-01-08 09:44 | Operative Report ---
Post Operative Report Procedure Date: January 08, 2024 Pre & Post Diagnosis: [Intrauterine at 39 weeks gestation. 3 previous sections.] Time Out: I identified the patient and participated in the time-out. Procedure: [] Repeat low segment section. Excision of skin scar. Surgeon: [] Dr. Hernandez Thread Puller: [] Dr. Jordan Estimated Blood Loss: [] 600 mL Findings: [] Intact lower uterine segment. Scarring of the lower rectus muscle. Specimens: [] Placenta. Description of Procedure: [] Patient was brought to the OR correctly identified by armband and conversation. Spinal anesthesia was administered. Dominguez catheter was inserted aseptically into the bladder. Compression stockings were applied. Lower abdomen and upper thighs were painted with an alcohol-based sterilizing solution. The solution was allowed to dry. Patient was draped in usual sterile fashion. Spinal was checked and found to be adequate. A Pfannenstiel incisional scar was excised. The incision was carried down to the anterior fascia by sharp dissection. The fascia was incised bilaterally and from the underlying muscle by blunt and sharp dissection. Recti muscles were in the midline. Lower uterine segment was exposed. An incision was made above the vesicouterine fold. The bladder was advanced out of the operative field. Lower uterine segment was entered by first cutting with a knife and then entering bluntly with the scissors. Clear amniotic fluid was seen at this time. Lower uterine segment was stretched open. A pectus retractor was applied to the head. We had some difficulty getting the head through the abdomen due to scarring of the abdominal wall. eventually was delivered. Suctioned through the mouth and the nose. Cord was allowed to clamp for 1 minute. Infant was attended by the neurology hospitalist who is scrubbed and present at the time of delivery. Cord blood was taken. The placenta was removed manually. Uterine cavity was cleansed with a clean sponge. 10 units of Pitocin was injected into the myometrium. We could not deliver the uterus through the abdominal wall due to its large size. We therefore repaired the lower uterine segment with the uterus and the abdomen. The angles of the defect were grasped with a ring forceps. Anterior and posterior lip was grasped with a ring forceps. We then did a deep suture of heavy chromic gut that approximated the myometrial layer. We then did a horizontal suture of Vicryl over this to approximate the fascial layer. And then several scyftw-[id number]-[id number] sutures of Vicryl to complete the approximation and control the bleeding. The vesicouterine fold was replaced with a running 3-0 Chromic Gut suture. Pelvis was cleansed of all blood clots and debris. Careful anatomical approximation of the anterior abdomen was performed. Peritoneum was closed with continuous suture of chromic catgut. Recti muscles were approximated with interrupted [id number] suture catgut. Fascia was closed with continuous interlocking suture of Vicryl on each side tied in the midline. Subcu was approximated with a running plain. And the skin edges were approximated with staple clips. Attestation: I attest to the content of the Intraoperative Record and any orders documented therein. Any exceptions are noted below.
[2024-01-08] MEDS ORDERED: LACTATED RINGER'S 1,000 ML IV SCH (09:45)
--- NOTE | 2024-01-08 10:10 | Anesthesiology Progress Note ---
Date of Service January 08, 2024 Anesthesia Post Procedure Vital Signs Vital Signs: Temp Pulse Resp BP Pulse Ox O2 Del Method 01/08/24 10:06 87 110/60 01/08/24 10:05 84 96 01/08/24 10:00 85 97 01/08/24 09:56 85 117/61 01/08/24 09:55 87 16 110/60 01/08/24 09:55 85 96 01/08/24 09:50 95 H 98 01/08/24 09:48 83 116/53 L 01/08/24 09:45 85 16 97 01/08/24 09:45 91 H 97 01/08/24 09:40 83 98 01/08/24 09:36 86 109/54 L 01/08/24 09:35 36.5 C 85 16 117/61 97 01/08/24 09:35 86 98 01/08/24 07:03 80 127/78 01/08/24 07:01 16 01/08/24 07:01 36.4 C L 16 01/08/24 05:46 82 123/67 01/08/24 05:40 36.7 C 82 18 123/67 Room Air Pain Intensity Lower Abdomen: Pain Intensity: 4 Transfer of Care Handoff Completed per policy Notes Mental Status: alert / awake / arousable and participated in evaluation Patient Amnestic to Procedure: Yes Nausea / Vomiting: adequately controlled Pain: adequately controlled Airway Patency, RR, SpO2: stable & adequate BP & HR: stable & adequate Hydration State: stable & adequate Neuraxial Anesthesia: was administered and sensory block is resolving Anesthetic Complications: no major complications apparent and Pt Satisfied with anesthetic care
[2024-01-08] MEDS: DIPHTHER/TETAN/PERTUS Vaccine (Tdap, Adol/Adult) 0.5mL IM ONE (10:32)
[2024-01-08] MEDS: MoRPHine SULFATE PF 1 MG/ML 10 ML AMP/VIAL INT SPINAL ONE (10:32)
[2024-01-08] MEDS: OXYTOCIN 30 UNITS/LR 1,003 ML IV SCH (12:44)
[2024-01-08] MEDS: SIMETHICONE 80 MG CHEW PO SCH (17:03)
[2024-01-08] MEDS: KETOROLAC 30 MG/ML VIAL IV PRN (20:51)
[2024-01-08] MEDS: DOCUSATE SODIUM 100 MG CAP PO SCH (20:51)
[2024-01-09] MEDS ORDERED: diphenhydrAMINE 50 MG/ML VIAL IV PRN (01:58)
[2024-01-09] MEDS ORDERED: diphenhydrAMINE Capsule 25 MG CAP PO PRN (01:58)
[2024-01-09] MEDS ORDERED: PROMETHAZINE HCL 25 MG in SODIUM CHLORIDE 0.9% 50 ML IV PRN (01:58)
[2024-01-09] MEDS: KETOROLAC 30 MG/ML VIAL IV PRN (04:43)
[2024-01-09 07:11] LABS: Basophils # (auto) 0.01 K/uL (0.00-0.20); Basophils % (auto) 0.2 %; Eosinophils # (auto) 0.04 K/uL (0.00-0.50); Eosinophils % (auto) 0.6 %; Hematocrit (blood only) 25.7 % (37.0-47.0); Hemoglobin 8.5 g/dl (12.0-16.0); Immature Granulocytes # (auto) 0.04 K/uL (0.01-0.20); Immature Granulocytes % (auto) 0.6 %; Lymphocytes # (auto) 0.64 K/uL (1.20-3.40); Lymphocytes % (auto) 9.7 %; Mean Corpuscular Hgb Conc 33.1 g/dL (32.0-36.0); Mean Corpuscular Volume 78.6 fL (80.0-100.0); Mean Platelet Volume 12.2 fL (9.4-12.4); Monocytes % (auto) 7.5 %; Neutrophils % (auto) 81.4 %; Platelet Count 116 K/uL (130-400); RDW Coefficient of Variation 14.9 % (11.5-14.5); RDW Standard Deviation 42.6 fL (36.4-46.3); Red Blood Count 3.27 M/uL (4.20-5.40); White Blood Count 6.63 K/ul (4.8-10.8)
[2024-01-09] MEDS: IBUPROFEN 600 MG TAB PO PRN (07:27)
[2024-01-09] MEDS: PRENATAL VITAMIN 1 TAB PO SCH (07:28)
[2024-01-09] MEDS: FERROUS SULFATE 325 MG TAB PO SCH (07:29)
--- NOTE | 2024-01-09 08:45 | Obstetrical Progress Note ---
Date of Service January 09, 2024 Assessment & Plan Admission and Anticipated Discharge Date Admission Date: January 08, 2024 Subjective abdomen soft and non tender passing flatus no calf tenderness incision is clean and dry vaginal bleeding scant hgb 8.5 Results & Data Vital Signs (Past 12 Hours) Vital Signs Temp Pulse Resp BP Pulse Ox O2 Del Method 01/09/24 08:00 36.7 C 68 18 110/65 98 Room Air 01/09/24 03:30 36.7 C 77 18 99/62 L 99 Room Air 01/09/24 02:00 20 99 01/09/24 01:00 16 96 01/09/24 00:00 18 97 01/08/24 23:00 16 96 01/08/24 22:03 18 97 01/08/24 21:15 18 97
--- NOTE | 2024-01-09 08:57 | Discharge Summary ---
Date of Service January 09, 2024 Admission HPI Per Admitting Provider Patient is a 33-year-old 5 para 3 with 1 spontaneous first trimester AB. She is in good general health. First was done for cephalopelvic disproportion. She had a trial of labor with the second and that failed to result in a vaginal delivery. Her last menstrual period is uncertain. She had a first trimester ultrasound done on 06/11/2023. At that time showed an intrauterine of 8 weeks 6 days. Giving her due date of 01/14/2024. Presently being scheduled for repeat low segment section. Discharge Data Consultations 01/08/24 05:26 Consult Anesthesiology Stat Procedures Performed Operation Date: 01/08/24 07:30 Actual Procedures p Repeat Section with the of a live male child at 0819. (Bilateral) - Alcides Hernandez MD Hospital Course (1) S/P repeat low transverse : Patient is a 33-year-old 5 para 4 patient followed in our office for care and delivery. All of her deliveries were via low segment section due to cephalopelvic disproportion. She has been admitted for her fourth section. Preoperative hemoglobin was 10.5. Postoperative hemoglobin 8.5. The day of admission she was taken to the OR where a repeat low segment section was performed. Estimated blood loss was 600 mL. She delivered a live healthy male. First postoperative day she was ambulating well eating well passing gas. Incision was clean and dry. Vaginal bleeding was minimal. She requested early discharge.
[2024-01-09] MEDS: oxyCODONE/ACETAMINOPHEN 5mg/325mg TAB PO PRN (13:16)
[2024-01-09] MEDS ORDERED: bisacodyL 5 MG TABEC PO SCH (20:00)
[2024-01-10] MEDS ORDERED: bisacodyL 10 MG SUPP PR PRN (09:32)
== END 2024-01-09 13:30 | disposition home or self-care (01) | DRG 788 ==
LOC: 4S1 05:25 → EDSTATUS 07:30 → 4E2 12:50